=== PATIENT | male | born 1990 | race Caucasian/White ===

== ENCOUNTER 2016-08-30 10:50 | Inpatient (IN) | payer OTHER, MEDICAID ==
[2016-08-30] MEDS ORDERED: Sodium Chloride 0.9% 10 ML Syringe FLUSH PRN (11:11)
--- NOTE | 2016-08-30 11:15 | EDM.PDOC ---
ED HISTORY OF PRESENT ILLNESS - General Chief Complaint: Respiratory Problem Stated Complaint: CONGESTION AND SOB Time Seen by Provider: 08/30/16 11:03 Source of Information: Reports: Patient, Other (Aid is present.) History Limitations: Reports: No limitations - History of Present Illness INITIAL COMMENTS - FREE TEXT/NARRATIVE: Patient is a 26-year-old male with Down's syndrome who presents to the ED complaining of increasing shortness of breath and weight gain. 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 Staff states the patient has been complaining of some congestion, cough, sore throat and low-grade fever for the past few days, and worsening shortness of breath. Upon awaking this morning patient was notable to have low O2 sats of 89 % and thus was evaluated by PCP today. Chest x-ray was obtained at that time with concerns for pneumonia/increased pulmonary vascular congestion. He was sent to the ED to further evaluate his heart. He does have a history of heart failure. Staff notes patient had a approximately 18 pound weight gain over the past 2 weeks. Of note these are to different scales utilized. They have noticed patient to be more short of breath on the days that he does not receive his diuretic. Patient is nonverbal but is able to point to the areas when questioned. He nods yes and no for answers. Again patient has a history of Down syndrome, Tetralogy of fallot, heart valve replacement, pacemaker, asthma, pneumonia, and oxygen dependence. Patient requires oxygen 4 L at night and 2 L during the day. - Related Data Allergies/ADRs: Allergies Allergy/AdvReac Type Severity Reaction Status Date / Time amoxicillin [Amoxicillin] Allergy Rash Verified 08/30/16 15:23 Home Meds: Home Meds Aspirin [Artemio Chewable] 81 mg PO DAILY 12/18/13 [History] Warfarin Sodium [Coumadin] 6 mg PO MOTUWETHSA 12/18/13 [History] Sulfamethoxazole/Trimethoprim [Sulfamethoxazole-Tmp Ds Tablet] 1 tab PO BID [History] Acetaminophen 650 mg PO Q4H PRN 08/30/16 [History] D-Methorphan Hb/P-Ephed HCl/Cp [Pedia Relief Cough-Cold] 4 tsp PO Q4H PRN [History] Omeprazole 20 mg PO DAILY 08/30/16 [History] Warfarin Sodium [Coumadin] 4 mg PO FRSA 08/30/16 [History] acetaZOLAMIDE [Acetazolamide] 250 mg PO Q48H 08/30/16 [History] Past Medical History Cardiovascular History: Reports: Afib, Heart valve replacement, Pacemaker Psychiatric History: Reports: Other (see below) Other Psychiatric History: Down's syndrome - Past Surgical History Head Surgeries/Procedures: Reports: None Social & Family History - Tobacco Use Smoking Status *Q: Never Smoker Second Hand Smoke Exposure: No - Caffeine Use Caffeine Use: Reports: None - Alcohol Use Days Per Week of Alcohol Use: 0 - Recreational Drug Use Recreational Drug Use: No ED ROS GENERAL - Review of Systems Review Of Systems: See Below Constitutional: Denies: fever, chills, malaise, weakness, fatigue, decreased appetite HEENT: Reports: Rhinitis, Sinus problem, Throat pain. Denies: Ear pain, Throat swelling Respiratory: Reports: Shortness of Breath, Wheezing, Cough, Sputum. Denies: Hemoptysis Cardiovascular: Reports: Dyspnea on exertion. Denies: Chest pain, Orthopnea, PND GI/Abdominal: Denies: Abdominal pain, Constipation, Diarrhea, Nausea, Vomiting : Reports: no symptoms Neurological: Reports: No Symptoms ED EXAM, GENERAL - Physical Exam Exam: See Below Exam Limited By: No limitations General Appearance: alert, WD/WN, no apparent distress, other (On supplemental oxygen via nasal cannula at 4 L per minute O2 sats 90%.) Eye Exam: bilateral eye: EOMI, PERRL Ears: normal external exam, normal canal, hearing grossly normal, normal TMs Nose: normal inspection Throat/Mouth: Normal inspection, Normal oropharynx, No airway compromise. No: Normal voice (Nonverbal) Neck: normal inspection, supple, non-tender, full range of motion, other (No JVD ). No: carotid bruit, lymphadenopathy (L), lymphadenopathy (R) Respiratory/Chest: no respiratory distress, lungs clear, no accessory muscle use , wheezing (Intermittent wheezing.), other (Poor inspiratory intake). No: crackles, rales, rhonchi, stridor, pleural rub Cardiovascular: normal peripheral pulses, regular rate, rhythm, systolic murmur Peripheral Pulses: 2+: radial (R) GI/Abdominal: normal bowel sounds, soft, non tender, no organomegaly, no distention Back Exam: normal inspection Extremities: normal inspection, non-tender, no pedal edema, normal capillary refill Neurological: alert, oriented, normal cognition, no motor/sensory deficits. No : CN II-XII intact (As tested intact) Psychiatric: normal affect, normal mood Skin Exam: Warm, Dry, Intact, Normal color, No rash Course - Vital Signs Last Recorded V/S: Last Vital Signs Temp 97.3 F 08/30/16 20:32 Pulse 82 08/30/16 20:32 Resp 24 H 08/30/16 20:32 BP 116/59 L 08/30/16 20:32 Pulse Ox 92 L 08/30/16 20:32 - Orders/Labs/Meds Orders: Active Orders 24 hr Category Date Time Status CULTURE BLOOD [] Stat Lab 08/30/16 13:49 Received CULTURE BLOOD [] Stat Lab 08/30/16 14:00 Received CULTURE STREP A CONFIRMATION [] Stat Lab 08/30/16 11:52 Results STREP SCRN A RAPID W CULT CONF [] Stat Lab 08/30/16 11:52 Results Sodium Chloride 0.9% [Normal Saline] 1,000 ml Med 08/30/16 13:45 Active IV ASDIRECTED Sodium Chloride 0.9% [Saline Flush] Med 08/30/16 11:11 Active 10 ml FLUSH ASDIRECTED PRN Blood Culture x2 Reflex Set [OM.PC] Stat Oth 08/30/16 13:27 Ordered Peripheral IV Insertion Adult [OM.PC] Stat Oth 08/30/16 11:12 Ordered Medication Orders Acetaminophen (Tylenol) 650 mg PO Q4H PRN PRN Reason: Pain (Mild 1-3)/fever Hydrocodone Bitart/Acetaminophen (Basco 325-5 Mg) 1 tab PO Q4H PRN PRN Reason: Pain (moderate 4-6) Last Admin: 08/30/16 21:16 Dose: 1 tab Acetazolamide (Diamox) 250 mg PO Q48H [facility] Albuterol/Ipratropium (Duoneb 3.0-0.5 Mg/3 Ml) 3 ml NEB Q4H PRN PRN Reason: Shortness Of Breath/wheezing Aspirin (Aspirin) 81 mg PO DAILY [facility] Bisacodyl (Dulcolax) 5 mg PO DAILY PRN PRN Reason: Constipation Docusate Sodium (Colace) 100 mg PO BID PRN PRN Reason: Constipation Guaifenesin (Mucinex) 1,200 mg PO BID [facility] Last Admin: 08/30/16 21:16 Dose: 1,200 mg Hydralazine HCl (Apresoline) 20 mg IVPUSH Q4H PRN PRN Reason: Hypertension Hydromorphone HCl (Dilaudid) 0.25 mg IVPUSH Q2H PRN PRN Reason: Pain (severe 7-10) Sodium Chloride (Normal Saline) 1,000 mls @ 75 mls/hr IV ASDIRECTED [facility] Last Admin: 08/30/16 14:47 Dose: 75 mls/hr Azithromycin 500 mg/ Sodium (Chloride) 250 mls @ 250 mls/hr IV Q24H [facility] Ceftriaxone Sodium 1 gm/ (Sodium Chloride) 100 mls @ 200 mls/hr IV Q24H [facility] Magnesium Sulfate (Pharmacy To Dose - Magnesium Replacement) 1 dose .XX ASDIRECTED [facility] Metoprolol Tartrate (Lopressor) 5 mg IVPUSH Q4H PRN PRN Reason: Tachycardia Ondansetron HCl (Zofran) 4 mg IV Q6H PRN PRN Reason: Nausea/Vomiting Pantoprazole Sodium (Protonix) 40 mg PO DAILY [facility] D-Methorphan Hb/P- Ephed Hcl/Cp [Pedia Relief Cough-Cold] 0 each PO Q4H PRN PRN Reason: cold symptoms Potassium Chloride (Pharmacy To Dose - Potassium Replacement) 1 dose .XX ASDIRECTED [facility] Saccharomyces Boulardii (Florastor) 250 mg PO BID [facility] Last Admin: 08/30/16 21:16 Dose: 250 mg Senna/Docusate Sodium (Senna Plus) 1 tab PO BID PRN PRN Reason: Constipation Sodium Chloride (Saline Flush) 10 ml FLUSH ASDIRECTED PRN PRN Reason: Keep Vein Open Last Admin: 08/30/16 13:10 Dose: 10 ml Temazepam (Restoril) 15 mg PO BEDTIME PRN PRN Reason: Sleep Warfarin Sodium (Coumadin) 4 mg PO FRSA [facility] Warfarin Sodium (Coumadin) 6 mg PO MOTUWETHSA [facility] Last Admin: 08/30/16 17:05 Dose: Labs: Laboratory Tests 08/30/16 08/30/16 08/30/16 Range/Units 12:15 12:15 12:15 WBC 7.49 (4.23-9.07) K/mm3 RBC 4.52 L (4.63-6.08) M/mm3 Hgb 14.3 (13.7-17.5) gm/L Hct 44.0 (40.1-51.0) % MCV 97.3 H (79.0-92.2) fl MCH 31.6 (25.7-32.2) pg MCHC 32.5 (32.2-35.5) g/dl RDW Std Deviation 51.4 H (35.1-43.9) fL Plt Count 196 (163-337) K/mm3 MPV 9.7 (9.4-12.3) fl Neut % (Auto) 81.6 H (34.0-67.9) % Lymph % (Auto) 11.3 L (21.8-53.1) % [place] % (Auto) 5.9 (5.3-12.2) % Eos % (Auto) 0.5 L (0.8-7.0) Baso % (Auto) 0.4 (0.1-1.2) % Neut # (Auto) 6.11 H (1.78-5.38) K/mm3 Lymph # (Auto) 0.85 L (1.32-3.57) K/mm3 [place] # (Auto) 0.44 (0.30-0.82) K/mm3 Eos # (Auto) 0.04 (0.04-0.54) K/mm3 Baso # (Auto) 0.03 (0.01-0.08) K/mm3 PT 43.5 H (8.0-13.0) SECONDS INR 3.67 Sodium 136 (136-145) mEq/L Potassium 3.7 (3.5-5.1) mEq/L Chloride 102 (98-107) mEq/L Carbon Dioxide 28 (21-32) mEq/L Anion Gap 9.7 (5-15) BUN 10 (7-18) mg/dL Creatinine 1.2 (0.7-1.3) mg/dL Est Cr Clr Drug Dosing 78.80 mL/min Estimated GFR (MDRD) > 60 (>60) mL/min BUN/Creatinine Ratio 8.3 L (14-18) Glucose 128 H (74-106) mg/dL Calcium 8.5 (8.5-10.1) mg/dL Total Bilirubin 0.7 (0.2-1.0) mg/dL AST 24 (15-37) U/L ALT 33 (16-63) U/L Alkaline Phosphatase 77 (46-116) U/L Troponin I < 0.017 (0.00-0.056) ng/mL C-Reactive Protein 20.3 H* (<1.0) mg/dL B-Natriuretic Peptide (0-100) pg/mL Total Protein 7.2 (6.4-8.2) g/dl Albumin 3.5 (3.4-5.0) g/dl Globulin 3.7 gm/dL Albumin/Globulin Ratio 1.0 (1-2) Mycoplasma pneumon IgM (NEGATIVE) 08/30/16 08/30/16 Range/Units 12:15 12:15 WBC (4.23-9.07) K/mm3 RBC (4.63-6.08) M/mm3 Hgb (13.7-17.5) gm/L Hct (40.1-51.0) % MCV (79.0-92.2) fl MCH (25.7-32.2) pg MCHC (32.2-35.5) g/dl RDW Std Deviation (35.1-43.9) fL Plt Count (163-337) K/mm3 MPV (9.4-12.3) fl Neut % (Auto) (34.0-67.9) % Lymph % (Auto) (21.8-53.1) % [place] % (Auto) (5.3-12.2) % Eos % (Auto) (0.8-7.0) Baso % (Auto) (0.1-1.2) % Neut # (Auto) (1.78-5.38) K/mm3 Lymph # (Auto) (1.32-3.57) K/mm3 [place] # (Auto) (0.30-0.82) K/mm3 Eos # (Auto) (0.04-0.54) K/mm3 Baso # (Auto) (0.01-0.08) K/mm3 PT (8.0-13.0) SECONDS INR Sodium (136-145) mEq/L Potassium (3.5-5.1) mEq/L Chloride (98-107) mEq/L Carbon Dioxide (21-32) mEq/L Anion Gap (5-15) BUN (7-18) mg/dL Creatinine (0.7-1.3) mg/dL Est Cr Clr Drug Dosing mL/min Estimated GFR (MDRD) (>60) mL/min BUN/Creatinine Ratio (14-18) Glucose (74-106) mg/dL Calcium (8.5-10.1) mg/dL Total Bilirubin (0.2-1.0) mg/dL AST (15-37) U/L ALT (16-63) U/L Alkaline Phosphatase (46-116) U/L Troponin I (0.00-0.056) ng/mL C-Reactive Protein (<1.0) mg/dL B-Natriuretic Peptide 124 H (0-100) pg/mL Total Protein (6.4-8.2) g/dl Albumin (3.4-5.0) g/dl Globulin gm/dL Albumin/Globulin Ratio (1-2) Mycoplasma pneumon IgM Negative (NEGATIVE) Meds: Medications Generic Name Dose Route Start Last Admin Trade Name Freq PRN Reason Stop Dose Admin Acetaminophen 650 mg 08/30/16 16:45 Tylenol PO Q4H PRN Pain (Mild 1-3)/fever Hydrocodone Bitart/Acetaminophen 1 tab 08/30/16 16:45 08/30/16 21:16 Basco 325-5 Mg PO 1 tab Q4H PRN Administration Pain (moderate 4-6) Acetazolamide 250 mg 08/31/16 08:00 Diamox PO Q48H [facility] Albuterol/Ipratropium 3 ml 08/30/16 16:45 Duoneb 3.0-0.5 Mg/3 Ml NEB Q4H PRN Shortness Of Breath/wheezing Aspirin 81 mg 08/31/16 09:00 Aspirin PO DAILY [facility] Bisacodyl 5 mg 08/30/16 16:45 Dulcolax PO DAILY PRN Constipation Docusate Sodium 100 mg 08/30/16 16:45 Colace PO BID PRN Constipation Guaifenesin 1,200 mg 08/30/16 21:00 08/30/16 21:16 Mucinex PO 1,200 mg BID [facility] Administration Hydralazine HCl 20 mg 08/30/16 16:52 Apresoline IVPUSH Q4H PRN Hypertension Hydromorphone HCl 0.25 mg 08/30/16 16:45 Dilaudid IVPUSH Q2H PRN Pain (severe 7-10) Sodium Chloride 1,000 mls @ 75 mls/hr 08/30/16 13:45 08/30/16 14:47 Normal Saline IV 75 mls/hr ASDIRECTED [facility] Administration Azithromycin 500 mg/ Sodium 250 mls @ 250 mls/hr 08/31/16 14:30 Chloride IV Q24H [facility] Ceftriaxone Sodium 1 gm/ 100 mls @ 200 mls/hr 08/31/16 14:00 Sodium Chloride IV Q24H [facility] Magnesium Sulfate 1 dose 08/30/16 17:00 Pharmacy To Dose - Magnesium Replacement .XX ASDIRECTED [facility] Metoprolol Tartrate 5 mg 08/30/16 16:52 Lopressor IVPUSH Q4H PRN Tachycardia Ondansetron HCl 4 mg 08/30/16 16:45 Zofran IV Q6H PRN Nausea/Vomiting Pantoprazole Sodium 40 mg 08/31/16 09:00 Protonix PO DAILY [facility] D-Methorphan Hb/P- 0 each 08/30/16 16:54 Ephed Hcl/Cp [Pedia PO Relief Cough-Cold] Q4H PRN cold symptoms Potassium Chloride 1 dose 08/30/16 17:00 Pharmacy To Dose - Potassium Replacement .XX ASDIRECTED [facility] Saccharomyces Boulardii 250 mg 08/30/16 21:00 08/30/16 21:16 Florastor PO 250 mg BID [facility] Administration Senna/Docusate Sodium 1 tab 08/30/16 16:45 Senna Plus PO BID PRN Constipation Sodium Chloride 10 ml 08/30/16 11:11 08/30/16 13:10 Saline Flush FLUSH 10 ml ASDIRECTED PRN Administration Keep Vein Open Temazepam 15 mg 08/30/16 16:45 Restoril PO BEDTIME PRN Sleep Warfarin Sodium 4 mg 09/01/16 18:00 Coumadin PO FRSA [facility] Warfarin Sodium 6 mg 08/30/16 18:00 08/30/16 17:05 Coumadin PO Not Given MOTUWETHSA [facility] Discontinued Medications Generic Name Dose Route Start Last Admin Trade Name Freq PRN Reason Stop Dose Admin Acetaminophen 650 mg 08/30/16 16:54 Tylenol PO Q4H PRN Pain/Fever Albuterol 2.5 mg 08/30/16 13:32 08/30/16 13:51 Proventil Neb Soln NEB 08/30/16 13:33 2.5 mg ONETIME ONE Administration Furosemide 60 mg 08/30/16 11:59 08/30/16 12:57 Lasix IVPUSH 08/30/16 12:00 60 mg NOW ONE Administration Azithromycin 500 mg/ Sodium 250 mls @ 250 mls/hr 08/30/16 13:35 08/30/16 14: 46 Chloride IV 08/30/16 14:34 250 mls/hr ONETIME ONE Administration Ceftriaxone Sodium 2 gm/ 100 mls @ 200 mls/hr 08/30/16 13:35 08/30/16 14:01 Sodium Chloride IV 08/30/16 14:04 200 mls/hr ONETIME ONE Administration - Re-Assessments/Exams Free Text/Narrative Re-Assessment/Exam: Normally on Home O2 4lpm at night and 2lpm during the day. O2 sats normally 92% . He presents today with o2 87 to 89% on 4lpm. CXR reviewed by Dr. Moulton and myself. Pacemaker present with prosthetic aortic and tricupsid valve. Increased pulmonary congestion noted. Dr. Moulton suggests with recent history of weight gain, worsening sob, will order 60mg lasix IV. 08/30/16 12:01 EKG revealed ventricular paced at a rate 84. 08/30/16 12:34 Labs are delayed secondary to electrical work. 08/30/16 13:30 Labs reviewed: White blood count 7.49, hemoglobin 14.3, platelets 196, for percentage 81.6, neutrophil number is 6.11, INR is 3.67, sodium 136, potassium 3.7, creatinine 1.2, glucose 128, troponin is negative, CRP is elevated at 20.3, BNP 124. INR goal is 2.0 to 3.5. BNP indicated he is not in congestive heart failure as expected. CXR revealed bilateral infiltration noted this may be related to influenza or mycoplasma. Influenza screen was negative. Ordered a mycoplasma. Patient does have a history of pneumonia. Will obtain blood cultures x2 prior to administration of IV antibiotics. Influenza screen and strep throat were both negative. Order Rocephin and azithromycin for CAP. 08/30/16 13:34 Ordered NS 75mls/hr. MCG was being completed by shaker operator. Awaiting status. Mycoplasma is negative. 08/30/16 15:06 Dr. Teo man hospitalist has accepted the patient. Will admit to [facility] with telemetry. Dr. Moulton has placed admission orders. Ordered UA w/micro. Departure - Departure Time of Disposition: 15:09 Disposition: Admitted As Inpatient 67 Clinical Impression: Hypoxia, Community acquired pneumonia, Complete trisomy 21 syndrome, Heart valve disorder, Valvular heart disease - My Orders Last 24 Hours: My Active Orders 08/30/16 11:11 Sodium Chloride 0.9% [Saline Flush] 10 ml FLUSH ASDIRECTED PRN 08/30/16 11:12 Peripheral IV Insertion Adult [OM.PC] Stat 08/30/16 11:52 CULTURE STREP A CONFIRMATION [RM] Stat STREP SCRN A RAPID W CULT CONF [RM] Stat 08/30/16 13:27 Blood Culture x2 Reflex Set [OM.PC] Stat 08/30/16 13:45 Sodium Chloride 0.9% [Normal Saline] 1,000 ml IV ASDIRECTED 08/30/16 13:49 CULTURE BLOOD [BC] Stat 08/30/16 14:00 CULTURE BLOOD [BC] Stat - Assessment/Plan Last 24 Hours: My Active Orders 08/30/16 11:11 Sodium Chloride 0.9% [Saline Flush] 10 ml FLUSH ASDIRECTED PRN 08/30/16 11:12 Peripheral IV Insertion Adult [OM.PC] Stat 08/30/16 11:52 CULTURE STREP A CONFIRMATION [RM] Stat STREP SCRN A RAPID W CULT CONF [RM] Stat 08/30/16 13:27 Blood Culture x2 Reflex Set [OM.PC] Stat 08/30/16 13:45 Sodium Chloride 0.9% [Normal Saline] 1,000 ml IV ASDIRECTED 08/30/16 13:49 CULTURE BLOOD [BC] Stat 08/30/16 14:00 CULTURE BLOOD [BC] Stat
[2016-08-30] MEDS ORDERED: Furosemide 40 MG/4 ML VIAL IVPUSH ONE (11:59)
--- NOTE | 2016-08-30 13:03 | PCM.SN ---
- Free Text/Narrative Note: 08/30/16 [id number] IV started 20 guage left wrist area. [email or web address]
[2016-08-30] MEDS ORDERED: Albuterol 0.083% 2.5 MG/3 ML Neb Soln NEB ONE (13:32)
[2016-08-30] MEDS ORDERED: Azithromycin 500 MG in Sodium Chloride 0.9% 250 ML IV ONE (13:35)
[2016-08-30] MEDS ORDERED: cefTRIAXone 2 GM in Sodium Chloride 0.9% 100 ML IV ONE (13:35)
[2016-08-30] MEDS: Sodium Chloride 0.9% 1,000 ML IV SCH (14:47)
--- NOTE | 2016-08-30 15:54 | PCM.HP ---
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 He was initially seen at his PCP office and was found to have bilateral pneumonia. Patient also carries a hx/o heart failure and [facility] noticed he has gained 18 lbs in the past 10 days. Patient is nonverbal and he is unable to provide pertinent info. HPI was obtained from secondary sources to include his mother who was present at bedside. His initial lab work in ED shows a fairly unremarkable CBC. INR is 3.67. His chemistry is significant for BS of 128, BNP of 124 and CRP of 20.3. His UA is negative for UTI. He is Mycoplasma negative. Initial CXR not available for review. He is DNR/DNI per mom. Throat Pain Score (Numeric/FACES): 2 - Related Data Allergies/Adverse Reactions: Allergies Allergy/AdvReac Type Severity Reaction Status Date / Time amoxicillin [Amoxicillin] Allergy Rash Verified 08/30/16 15:23 Home Medications: Home Meds Aspirin [Artemio Chewable] 81 mg PO DAILY 12/18/13 [History] Warfarin Sodium [Coumadin] 6 mg PO MOTUWETHSA 12/18/13 [History] Sulfamethoxazole/Trimethoprim [Sulfamethoxazole-Tmp Ds Tablet] 1 tab PO BID [History] Acetaminophen 650 mg PO Q4H PRN 08/30/16 [History] D-Methorphan Hb/P-Ephed HCl/Cp [Pedia Relief Cough-Cold] 4 tsp PO Q4H PRN [History] Omeprazole 20 mg PO DAILY 08/30/16 [History] Warfarin Sodium [Coumadin] 4 mg PO FRSA 08/30/16 [History] acetaZOLAMIDE [Acetazolamide] 250 mg PO Q48H 08/30/16 [History] Past Medical History HEENT History: Reports: Impaired vision Cardiovascular History: Reports: Afib, Heart valve replacement, Pacemaker Respiratory History: Reports: Pneumonia, recurrent, Sleep apnea Psychiatric History: Reports: Other (see below) Other Psychiatric History: Down's syndrome Endocrine/Metabolic History: Reports: Obesity/BMI 30+ - Past Surgical History Head Surgeries/Procedures: Reports: None Social & Family History - Tobacco Use Smoking Status *Q: Never Smoker Second Hand Smoke Exposure: No - Caffeine Use Caffeine Use: Reports: Soda - Alcohol Use Days Per Week of Alcohol Use: 0 - Recreational Drug Use Recreational Drug Use: No H&P Review of Systems - Review of Systems: Review Of Systems: See Below General: Denies: fever, chills, malaise, weakness, fatigue, decreased appetite HEENT: Reports: rhinitis, sinus congestion, sore throat Pulmonary: Reports: Shortness of Breath, Wheezing, Cough, Sputum Cardiovascular: Reports: dyspnea on exertion Gastrointestinal: Denies: Abdominal pain, Constipation, Diarrhea, Nausea, Vomiting Genitourinary: Reports: no symptoms Musculoskeletal: Denies: joint pain, muscle pain Skin: Denies: cyanosis, rash, erythema Review of Systems Comment:: Patient is non verbal and unable to provide pertinent information. He will respond when you give him choices or options. Exam - Exam Exam: See Below - Vital Signs Vital Signs: Last Vital Signs Temp 37.1 C 08/30/16 15:15 Pulse 89 08/30/16 15:15 Resp 22 H 08/30/16 15:15 BP 107/79 08/30/16 15:15 Pulse Ox 92 L 08/30/16 15:15 Weight: 105.732 kg - Exam Quality Assessment: supplemental oxygen General: alert, cooperative, other (Obese). No: mild distress HEENT: Conjunctiva clear, Hearing intact, Mucosa moist & pink, Normal nasal septum, Rhinitis, Other (Allergic shiners), PERRLA. No: Nares patent Neck: supple, trachea midline, 2+ carotid pulse wo bruit, other (Short and thick ) Lungs: Normal respiratory effort, Decreased breath sounds, Other (Poor inspiratory and expiratory effort) Cardiovascular: regular rate, regular rhythm Abdomen: normal bowel sounds, soft, other (Obese). No: organomegaly (Male) Exam: Deferred Rectal (Males) Exam: Deferred Back Exam: normal inspection, decreased range of motion Extremities: normal inspection, normal pulses, edema. No: clubbing, cyanosis, calf tenderness Peripheral Pulses: 2+: posterior tibial (L), posterior tibial (R), dorsalis pedis (L), dorsalis pedis (R) Skin: warm, dry, intact, other (distal digits cyanosis and lower extremity are somewhat mottled) Skin Alteration Location (drawings not to scale): 1 - Mid-line scar 2 - Diagonal scar. Pacemaker Neuro Extensive - Motor, Sensory, Reflexes: normal gait Psychiatric: alert. No: normal affect Physical Exam Comments:: Patient has a baseline intellectual disability. He is nonverbal. - Patient Data Result Diagrams: 08/30/16 12:15 08/30/16 12:15 *Q Meaningful Use (ADM) - VTE *Q VTE Criteria *Q: - Stroke *Q Stroke Criteria *Q: - AMI *Q AMI Criteria *Q: Problem List Initiated/Reviewed/Updated: Yes Orders Last 24hrs: Active Orders 24 hr Category Date Time Status UA W/MICROSCOPIC [URIN] Stat Lab 08/30/16 15:08 Uncollected Medication Orders Sodium Chloride (Normal Saline) 1,000 mls @ 75 mls/hr IV ASDIRECTED [facility] Last Admin: 08/30/16 14:47 Dose: 75 mls/hr Sodium Chloride (Saline Flush) 10 ml FLUSH ASDIRECTED PRN PRN Reason: Keep Vein Open Last Admin: 08/30/16 13:10 Dose: 10 ml Assessment/Plan Comment:: Assessment/Plan: Acute: Community Acquired Pneumonia - Seen on PCP's office, concerns for pneumonia, he was sent to ED for further eval - CXR bilateral infiltrate (I as not able to view it) - IV Azithromycin and Rocephin - Supplemental O2, Bronchodilators, IS and FV q2 awake and Cough Decongestant - Mycoplasma negative - Legionella and Strep Ag test - CXR series Supratherapeutic INR - INR is 3.67 - Pharmacy to monitor Weight Gain of 18lbs - Dietary consult for weight management Chronic: Atrial Fibrillation, HR Controlled on Warfarin Heart Valve Replacement (2 Prosthetic Valves) S/p Pacemaker Placement Down Syndrome Hx/o Heart Failure Hx/o Tetralogy of Fallot 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
[2016-08-30] MEDS ORDERED: HYDROmorphone 0.5 MG/0.5 ML Syringe IVPUSH PRN (16:45)
[2016-08-30] MEDS ORDERED: Bisacodyl 5 MG Tab PO PRN (16:45)
[2016-08-30] MEDS ORDERED: Docusate Sodium 100 MG Cap PO PRN (16:45)
[2016-08-30] MEDS ORDERED: Ondansetron 4 MG/2 ML SDV IV PRN (16:45)
[2016-08-30] MEDS ORDERED: Acetaminophen 325 MG Tab PO PRN ×2 (16:45→16:54)
[2016-08-30] MEDS ORDERED: Temazepam 15 MG Cap PO PRN (16:45)
[2016-08-30] MEDS ORDERED: hydrALAZINE 20 MG/ML SDV IVPUSH PRN (16:52)
[2016-08-30] MEDS ORDERED: Metoprolol Tartrate 5 MG/5 ML SDV IVPUSH PRN (16:52)
[2016-08-30] MEDS ORDERED: D METHORPHAN HB PO PRN (16:54)
[2016-08-30] MEDS ORDERED: P EPHED HCL PO PRN (16:54)
[2016-08-30] MEDS ORDERED: [UNRECOGNIZED DRUG - OTHER] PO PRN (16:54)
[2016-08-30] MEDS ORDERED: Warfarin 3 MG Tab PO SCH (18:00)
[2016-08-30] MEDS: guaiFENesin 600 MG Tab.ER PO SCH (21:16)
[2016-08-30] MEDS: Saccharomyces Boulardii (Probiotic) 250 MG Cap PO SCH (21:16)
[2016-08-30] MEDS: Acetaminophen/HYDROcodone 325-5 MG Tab PO PRN (21:16)
[2016-08-31] MEDS: Sodium Chloride 0.9% 1,000 ML IV SCH (03:52)
[2016-08-31] MEDS: Albuterol/Ipratropium 3.0-0.5 MG/3 ML Neb Soln NEB PRN ×3 (06:07→21:41)
[2016-08-31] MEDS ORDERED: Magnesium Sulfate/Water 2 GM in Premix Bag 1 BAG IV ONE (07:45)
[2016-08-31] MEDS: Oxymetazoline 0.05% Nasal Spray 15 ML Bottle NAS SCH (08:12)
[2016-08-31] MEDS: guaiFENesin 600 MG Tab.ER PO SCH ×2 (08:13→20:04)
[2016-08-31] MEDS: Pantoprazole 40 MG Tab.CR PO SCH (08:13)
[2016-08-31] MEDS: Aspirin 81 MG Tab.Chew PO SCH (08:13)
[2016-08-31] MEDS: Saccharomyces Boulardii (Probiotic) 250 MG Cap PO SCH ×2 (08:13→20:06)
[2016-08-31] MEDS: acetaZOLAMIDE 250 MG Tab PO SCH (08:13)
[2016-08-31] MEDS: Loratadine 10 MG Tab PO SCH (08:13)
[2016-08-31] MEDS ORDERED: Furosemide 20 MG/2 ML VIAL IVPUSH ONE (10:36)
--- NOTE | 2016-08-31 10:42 | PCM.PN ---
- General Info Date of Service: 08/31/16 Admission Dx/Problem (Free Text): Admission Diagnosis/Problem Admission Diagnosis/Problem Pneumonia Sandip is seen this morning, resting comfortably in bed. He is responsive to me, smiles and nods his head yes or no, sits up when asked, follows commands appropriately. He nods his head no when asked if pain, nods his head yes if SOB and yes that he is feeling a little better. Labs are stable/improving today. VSS this morning, continues on 4L/NC this am. Functional Status: Reports: pain controlled, tolerating diet, ambulating, urinating. Denies: new symptoms - Review of Systems Systems Review Comment:: Difficult to obtain as patient will only shake his head yes or no, but no pain and does have SOB but better than yesterday. - Patient Data Vitals - most recent: Last Vital Signs Temp 97.0 F 08/31/16 03:38 Pulse 72 08/31/16 03:38 Resp 23 H 08/31/16 03:38 BP 125/55 L 08/31/16 03:38 Pulse Ox 94 L 08/31/16 09:08 Weight - most recent: 233 lb 6.4 oz I&O - last 24 hours: Intake & Output 08/30/16 08/31/16 08/31/16 22:59 06:59 14:59 Intake Total 420 1351 Output Total 850 550 Balance -430 801 Lab Results last 24 hrs: Laboratory Results - last 24 hr 08/30/16 08/30/16 08/31/16 Range/Units 17:03 18:40 06:00 WBC 4.87 (4.23-9.07) K/mm3 RBC 4.33 L (4.63-6.08) M/mm3 Hgb 13.6 L (13.7-17.5) gm/L Hct 42.2 (40.1-51.0) % MCV 97.5 H (79.0-92.2) fl MCH 31.4 (25.7-32.2) pg MCHC 32.2 (32.2-35.5) g/dl RDW Std Deviation 52.0 H (35.1-43.9) fL Plt Count 191 (163-337) K/mm3 MPV 9.5 (9.4-12.3) fl Neut % (Auto) 63.5 (34.0-67.9) % Lymph % (Auto) 18.5 L (21.8-53.1) % [place] % (Auto) 12.3 H (5.3-12.2) % Eos % (Auto) 4.3 (0.8-7.0) Baso % (Auto) 0.6 (0.1-1.2) % Neut # (Auto) 3.09 (1.78-5.38) K/mm3 Lymph # (Auto) 0.90 L (1.32-3.57) K/mm3 [place] # (Auto) 0.60 (0.30-0.82) K/mm3 Eos # (Auto) 0.21 (0.04-0.54) K/mm3 Baso # (Auto) 0.03 (0.01-0.08) K/mm3 PT (8.0-13.0) SECONDS INR Sodium (136-145) mEq/L Potassium (3.5-5.1) mEq/L Chloride (98-107) mEq/L Carbon Dioxide (21-32) mEq/L Anion Gap (5-15) BUN (7-18) mg/dL Creatinine (0.7-1.3) mg/dL Est Cr Clr Drug Dosing mL/min Estimated GFR (MDRD) (>60) mL/min BUN/Creatinine Ratio (14-18) Glucose (74-106) mg/dL Calcium (8.5-10.1) mg/dL Magnesium (1.8-2.4) mg/dl C-Reactive Protein (<1.0) mg/dL Urine Color Yellow (Yellow) Urine Appearance Clear (Clear) Urine pH 5.5 (5.0-8.0) Ur Specific [place] 1.025 (1.005-1.030) Urine Protein Negative (Negative) Urine Glucose (UA) Negative (Negative) Urine Ketones Negative (Negative) Urine Occult Blood Negative (Negative) Urine Nitrite Negative (Negative) Urine Bilirubin Negative (Negative) Urine Urobilinogen 0.2 (0.2-1.0) Ur Leukocyte Esterase Negative (Negative) Urine RBC 0-5 (0-5) /hpf Urine WBC 0-5 (0-5) /hpf Ur Epithelial Cells Not Reportable Ur Squamous Epith Cells 5-10 H (0-5) /hpf Urine Bacteria Not seen (FEW) /hpf Urine Mucus Not seen (FEW) /hpf MRSA (PCR) Negative 08/31/16 08/31/16 Range/Units 06:00 06:00 WBC (4.23-9.07) K/mm3 RBC (4.63-6.08) M/mm3 Hgb (13.7-17.5) gm/L Hct (40.1-51.0) % MCV (79.0-92.2) fl MCH (25.7-32.2) pg MCHC (32.2-35.5) g/dl RDW Std Deviation (35.1-43.9) fL Plt Count (163-337) K/mm3 MPV (9.4-12.3) fl Neut % (Auto) (34.0-67.9) % Lymph % (Auto) (21.8-53.1) % [place] % (Auto) (5.3-12.2) % Eos % (Auto) (0.8-7.0) Baso % (Auto) (0.1-1.2) % Neut # (Auto) (1.78-5.38) K/mm3 Lymph # (Auto) (1.32-3.57) K/mm3 [place] # (Auto) (0.30-0.82) K/mm3 Eos # (Auto) (0.04-0.54) K/mm3 Baso # (Auto) (0.01-0.08) K/mm3 PT 46.1 H (8.0-13.0) SECONDS INR 3.88 Sodium 141 (136-145) mEq/L Potassium 3.6 (3.5-5.1) mEq/L Chloride 105 (98-107) mEq/L Carbon Dioxide 30 (21-32) mEq/L Anion Gap 9.6 (5-15) BUN 10 (7-18) mg/dL Creatinine 1.1 (0.7-1.3) mg/dL Est Cr Clr Drug Dosing 79.28 mL/min Estimated GFR (MDRD) > 60 (>60) mL/min BUN/Creatinine Ratio 9.1 L (14-18) Glucose 93 (74-106) mg/dL Calcium 8.2 L (8.5-10.1) mg/dL Magnesium 1.6 L (1.8-2.4) mg/dl C-Reactive Protein 17.1 H* (<1.0) mg/dL Urine Color (Yellow) Urine Appearance (Clear) Urine pH (5.0-8.0) Ur Specific [place] (1.005-1.030) Urine Protein (Negative) Urine Glucose (UA) (Negative) Urine Ketones (Negative) Urine Occult Blood (Negative) Urine Nitrite (Negative) Urine Bilirubin (Negative) Urine Urobilinogen (0.2-1.0) Ur Leukocyte Esterase (Negative) Urine RBC (0-5) /hpf Urine WBC (0-5) /hpf Ur Epithelial Cells Ur Squamous Epith Cells (0-5) /hpf Urine Bacteria (FEW) /hpf Urine Mucus (FEW) /hpf MRSA (PCR) Med Orders - Current: Current Medications Acetaminophen (Tylenol) 650 mg PO Q4H PRN PRN Reason: Pain (Mild 1-3)/fever Hydrocodone Bitart/Acetaminophen ([place] 325-5 Mg) 1 tab PO Q4H PRN PRN Reason: Pain (moderate 4-6) Last Admin: 08/30/16 21:16 Dose: 1 tab Acetazolamide (Diamox) 250 mg PO Q48H [facility] Last Admin: 08/31/16 08:13 Dose: 250 mg Albuterol/Ipratropium (Duoneb 3.0-0.5 Mg/3 Ml) 3 ml NEB Q4H PRN PRN Reason: Shortness Of Breath/wheezing Last Admin: 08/31/16 06:07 Dose: 3 ml Aspirin (Aspirin) 81 mg PO DAILY [facility] Last Admin: 08/31/16 08:13 Dose: 81 mg Bisacodyl (Dulcolax) 5 mg PO DAILY PRN PRN Reason: Constipation Docusate Sodium (Colace) 100 mg PO BID PRN PRN Reason: Constipation Furosemide (Lasix) 20 mg IVPUSH NOW ONE Stop: 08/31/16 10:37 Guaifenesin (Mucinex) 1,200 mg PO BID [facility] Last Admin: 08/31/16 08:13 Dose: 1,200 mg Hydralazine HCl (Apresoline) 20 mg IVPUSH Q4H PRN PRN Reason: Hypertension Hydromorphone HCl (Dilaudid) 0.25 mg IVPUSH Q2H PRN PRN Reason: Pain (severe 7-10) Azithromycin 500 mg/ Sodium (Chloride) 250 mls @ 250 mls/hr IV Q24H [facility] Ceftriaxone Sodium 1 gm/ (Sodium Chloride) 100 mls @ 200 mls/hr IV Q24H [facility] Loratadine (Claritin) 10 mg PO DAILY [facility] Last Admin: 08/31/16 08:13 Dose: 10 mg Magnesium Sulfate (Pharmacy To Dose - Magnesium Replacement) 1 dose .XX ASDIRECTED [facility] Metoprolol Tartrate (Lopressor) 5 mg IVPUSH Q4H PRN PRN Reason: Tachycardia Ondansetron HCl (Zofran) 4 mg IV Q6H PRN PRN Reason: Nausea/Vomiting Oxymetazoline HCl (Afrin Original 0.05% Nasal [place]) 15 ml JACI DAILY [facility] Last Admin: 08/31/16 08:12 Dose: 1 spray Pantoprazole Sodium (Protonix) 40 mg PO DAILY [facility] Last Admin: 08/31/16 08:13 Dose: 40 mg D-Methorphan Hb/P- Ephed Hcl/Cp [Pedia Relief Cough-Cold] 0 each PO Q4H PRN PRN Reason: cold symptoms Potassium Chloride (Pharmacy To Dose - Potassium Replacement) 1 dose .XX ASDIRECTED [facility] Saccharomyces Boulardii (Florastor) 250 mg PO BID [facility] Last Admin: 08/31/16 08:13 Dose: 250 mg Senna/Docusate Sodium (Senna Plus) 1 tab PO BID PRN PRN Reason: Constipation Sodium Chloride (Saline Flush) 10 ml FLUSH ASDIRECTED PRN PRN Reason: Keep Vein Open Last Admin: 08/30/16 13:10 Dose: 10 ml Temazepam (Restoril) 15 mg PO BEDTIME PRN PRN Reason: Sleep Trimethoprim/Sulfamethoxazole (Septra Ds) 1 tab PO BID [facility] Warfarin Sodium (Pharmacy To Dose - Warfarin) 1 dose .XX ASDIRECTED [facility] Warfarin Sodium (Coumadin) 4 mg PO ONETIME ONE Stop: 08/31/16 18:01 Discontinued Medications Acetaminophen (Tylenol) 650 mg PO Q4H PRN PRN Reason: Pain/Fever Albuterol (Proventil Neb Soln) 2.5 mg NEB ONETIME ONE Stop: 08/30/16 13:33 Last Admin: 08/30/16 13:51 Dose: 2.5 mg Furosemide (Lasix) 60 mg IVPUSH NOW ONE Stop: 08/30/16 12:00 Last Admin: 08/30/16 12:57 Dose: 60 mg Sodium Chloride (Normal Saline) 1,000 mls @ 75 mls/hr IV ASDIRECTED [facility] Last Admin: 08/31/16 03:52 Dose: 75 mls/hr Azithromycin 500 mg/ Sodium (Chloride) 250 mls @ 250 mls/hr IV ONETIME ONE Stop: 08/30/16 14:34 Last Admin: 08/30/16 14:46 Dose: 250 mls/hr Ceftriaxone Sodium 2 gm/ (Sodium Chloride) 100 mls @ 200 mls/hr IV ONETIME ONE Stop: 08/30/16 14:04 Last Admin: 08/30/16 14:01 Dose: 200 mls/hr Magnesium Sulfate 2 gm/ Premix 50 mls @ 25 mls/hr IV ONETIME ONE Stop: 08/31/16 09:44 Last Admin: 08/31/16 08:12 Dose: 25 mls/hr Warfarin Sodium (Coumadin) 4 mg PO FRSA [facility] Warfarin Sodium (Coumadin) 6 mg PO MOTUWETHSA [facility] Last Admin: 08/30/16 17:05 Dose: Not Given - Exam Quality Assessment: supplemental oxygen, DVT prophylaxis (SCD's bilat) General: alert, cooperative, no acute distress (pleasant, smiles and shakes/ holds my hand this morning) HEENT: Pupils equal, Pupils reactive, EOMI, Mucous membr. moist/pink Neck: supple Lungs: Decreased breath sounds, Crackles (bases bilat), Rhonchi, Wheezing (mid to upper lobes bilat) Cardiovascular: Regular Rate, Regular Rhythm, Other (distant heart tones) Abdomen: bowel sounds present, soft, no tenderness. No: rebound, guarding, distension (Male) Exam: Deferred Back Exam: normal inspection Extremities: no calf tenderness Peripheral Pulses: 1+: dorsalis pedis (L), dorsalis pedis (R) Skin: warm, dry Neurological: other (nonverbal but does shake his head yes or no appropriately this moring when asked questions. Developmental delay. ) Psy/Mental Status: alert (calm and pleasant this am.) - Problem List & Annotations (1) Community acquired pneumonia SNOMED Code(s): 103636546 Code(s): J18.9 - PNEUMONIA, UNSPECIFIED ORGANISM Status: Acute Priority: High Current Visit: Yes (2) Hypoxia SNOMED Code(s): 614165576, 972060551 Code(s): R09.02 - HYPOXEMIA Status: Resolved Priority: High Current Visit: Yes (3) Heart valve disorder SNOMED Code(s): 779034 Code(s): I38 - ENDOCARDITIS, VALVE UNSPECIFIED Status: Chronic Priority: High Current Visit: Yes Annotation/Comment:: On coumadin therapy; two metal valves; [facility] coumadin [facility] recommends INR between 3 and 4. (4) Valvular heart disease SNOMED Code(s): 519236 Code(s): I38 - ENDOCARDITIS, VALVE UNSPECIFIED Status: Acute Current Visit: Yes (5) Complete trisomy 21 syndrome SNOMED Code(s): 63852036 Code(s): Q90.9 - DOWN SYNDROME, UNSPECIFIED Status: Chronic Priority: Medium Current Visit: No - Problem List Review Problem List Initiated/Reviewed/Updated: Yes - My Orders Last 24 Hours: My Active Orders 08/31/16 10:00 Sulfamethoxazole/Trimethoprim [Septra DS] 1 tab PO BID 08/31/16 10:36 Furosemide [Lasix] 20 mg IVPUSH NOW ONE 08/31/16 18:00 Warfarin [Coumadin] 4 mg PO ONETIME ONE - Plan Plan:: Assessment/Plan: Acute: Community Acquired Pneumonia - Seen on PCP's office, concerns for pneumonia, he was sent to ED for further eval - CXR bilateral infiltrate (I as not able to view it) -- Repeat one view chest this am with LLL pna noted, rt sided haziness present as well. - IV Azithromycin and Rocephin - Supplemental O2, Bronchodilators, IS and FV q2 awake and Cough Decongestant - Mycoplasma negative - Legionella and Strep Ag test - also negative - CXR series Supratherapeutic INR - INR is 3.67--3.8 8 - Pharmacy to monitor -Per [facility] coumadin clinic, recommend INR at 3-4 with two metal valves. 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 Code status: DNR/DNI
--- NOTE | 2016-08-31 11:13 | CR ---
Chest: Portable view of the chest was obtained. Comparison: Previous chest x-ray of 05/18/16. Prosthetic heart valves are seen. Sternotomy wires are noted. Epicardial wires are seen. Heart is enlarged. Pulmonary vessels show mild chronic appearing congestion. Impression: 1. Findings as noted above. No significant change is seen from previous chest x-ray. Diagnostic code #2
[2016-08-31] MEDS: Sulfamethoxazole/Trimethoprim 800-160 MG Tab PO SCH ×2 (11:18→20:06)
[2016-08-31] MEDS: cefTRIAXone 1 GM in Sodium Chloride 0.9% 100 ML IV SCH (13:59)
[2016-08-31] MEDS: Azithromycin 500 MG in Sodium Chloride 0.9% 250 ML IV SCH ×2 (14:00→14:16)
[2016-08-31] MEDS ORDERED: Warfarin 4 MG Tab PO ONE (18:00)
[2016-08-31] MEDS: Acetaminophen/HYDROcodone 325-5 MG Tab PO PRN (20:05)
[2016-09-01] MEDS: Albuterol/Ipratropium 3.0-0.5 MG/3 ML Neb Soln NEB PRN (06:30)
--- NOTE | 2016-09-01 06:41 | PCM.PN ---
- General Info Date of Service: 09/01/16 Admission Dx/Problem (Free Text): Admission Diagnosis/Problem Admission Diagnosis/Problem Pneumonia Sandip is seen this morning, resting comfortably in bed. He is responsive to me, doing well. He is responsive with nods to his head of yes and no appropriately. SOB is improved, still coughing. Overall feels better today. Labs are stable/improving today. VSS this morning. Functional Status: Reports: pain controlled, tolerating diet, ambulating, urinating. Denies: new symptoms - Review of Systems General: Reports: No Symptoms. Denies: Fever HEENT: Reports: no symptoms Pulmonary: Reports: no symptoms. Denies: shortness of breath (improving), cough Cardiovascular: Reports: No Symptoms Gastrointestinal: Reports: No symptoms Genitourinary: Reports: no symptoms Musculoskeletal: Reports: no symptoms Skin: Reports: no symptoms Neurological: Reports: No Symptoms, Other (developemtnal delay- baseline) Psychiatric: Reports: no symptoms - Patient Data Vitals - most recent: Last Vital Signs Temp 98.2 F 09/01/16 04:18 Pulse 60 09/01/16 04:18 Resp 18 09/01/16 04:18 BP 107/57 L 09/01/16 04:18 Pulse Ox 95 09/01/16 04:18 Weight - most recent: 233 lb 4.8 oz I&O - last 24 hours: Intake & Output 08/31/16 08/31/16 09/01/16 14:59 22:59 06:59 Intake Total 360 1386 200 Output Total 1050 1325 Balance 360 336 -1125 Lab Results last 24 hrs: Laboratory Results - last 24 hr 08/31/16 08/31/16 Range/Units 06:00 06:00 PT 46.1 H (8.0-13.0) SECONDS INR 3.88 Sodium 141 (136-145) mEq/L Potassium 3.6 (3.5-5.1) mEq/L Chloride 105 (98-107) mEq/L Carbon Dioxide 30 (21-32) mEq/L Anion Gap 9.6 (5-15) BUN 10 (7-18) mg/dL Creatinine 1.1 (0.7-1.3) mg/dL Est Cr Clr Drug Dosing 79.28 mL/min Estimated GFR (MDRD) > 60 (>60) mL/min BUN/Creatinine Ratio 9.1 L (14-18) Glucose 93 (74-106) mg/dL Calcium 8.2 L (8.5-10.1) mg/dL Magnesium 1.6 L (1.8-2.4) mg/dl C-Reactive Protein 17.1 H* (<1.0) mg/dL Med Orders - Current: Current Medications Acetaminophen (Tylenol) 650 mg PO Q4H PRN PRN Reason: Pain (Mild 1-3)/fever Last Admin: 09/01/16 04:23 Dose: 650 mg Hydrocodone Bitart/Acetaminophen ([place] 325-5 Mg) 1 tab PO Q4H PRN PRN Reason: Pain (moderate 4-6) Last Admin: 08/31/16 20:05 Dose: 1 tab Acetazolamide (Diamox) 250 mg PO Q48H [facility] Last Admin: 08/31/16 08:13 Dose: 250 mg Albuterol/Ipratropium (Duoneb 3.0-0.5 Mg/3 Ml) 3 ml NEB Q4H PRN PRN Reason: Shortness Of Breath/wheezing Last Admin: 09/01/16 06:30 Dose: 3 ml Aspirin (Aspirin) 81 mg PO DAILY [facility] Last Admin: 08/31/16 08:13 Dose: 81 mg Bisacodyl (Dulcolax) 5 mg PO DAILY PRN PRN Reason: Constipation Docusate Sodium (Colace) 100 mg PO BID PRN PRN Reason: Constipation Guaifenesin (Mucinex) 1,200 mg PO BID [facility] Last Admin: 08/31/16 20:04 Dose: 1,200 mg Hydralazine HCl (Apresoline) 20 mg IVPUSH Q4H PRN PRN Reason: Hypertension Hydromorphone HCl (Dilaudid) 0.25 mg IVPUSH Q2H PRN PRN Reason: Pain (severe 7-10) Azithromycin 500 mg/ Sodium (Chloride) 250 mls @ 250 mls/hr IV Q24H [facility] Last Admin: 08/31/16 14:16 Dose: 250 mls/hr Ceftriaxone Sodium 1 gm/ (Sodium Chloride) 100 mls @ 200 mls/hr IV Q24H [facility] Last Admin: 08/31/16 13:59 Dose: 200 mls/hr Loratadine (Claritin) 10 mg PO DAILY [facility] Last Admin: 08/31/16 08:13 Dose: 10 mg Magnesium Sulfate (Pharmacy To Dose - Magnesium Replacement) 1 dose .XX ASDIRECTED [facility] Metoprolol Tartrate (Lopressor) 5 mg IVPUSH Q4H PRN PRN Reason: Tachycardia Ondansetron HCl (Zofran) 4 mg IV Q6H PRN PRN Reason: Nausea/Vomiting Oxymetazoline HCl (Afrin Original 0.05% Nasal [place]) 15 ml JACI DAILY [facility] Last Admin: 08/31/16 08:12 Dose: 1 spray Pantoprazole Sodium (Protonix) 40 mg PO DAILY [facility] Last Admin: 08/31/16 08:13 Dose: 40 mg D-Methorphan Hb/P- Ephed Hcl/Cp [Pedia Relief Cough-Cold] 0 each PO Q4H PRN PRN Reason: cold symptoms Potassium Chloride (Pharmacy To Dose - Potassium Replacement) 1 dose .XX ASDIRECTED [facility] Saccharomyces Boulardii (Florastor) 250 mg PO BID [facility] Last Admin: 08/31/16 20:06 Dose: 250 mg Senna/Docusate Sodium (Senna Plus) 1 tab PO BID PRN PRN Reason: Constipation Sodium Chloride (Saline Flush) 10 ml FLUSH ASDIRECTED PRN PRN Reason: Keep Vein Open Last Admin: 08/30/16 13:10 Dose: 10 ml Temazepam (Restoril) 15 mg PO BEDTIME PRN PRN Reason: Sleep Trimethoprim/Sulfamethoxazole (Septra Ds) 1 tab PO BID [facility] Last Admin: 08/31/16 20:06 Dose: 1 tab Warfarin Sodium (Pharmacy To Dose - Warfarin) 1 dose .XX ASDIRECTED [facility] Discontinued Medications Acetaminophen (Tylenol) 650 mg PO Q4H PRN PRN Reason: Pain/Fever Albuterol (Proventil Neb Soln) 2.5 mg NEB ONETIME ONE Stop: 08/30/16 13:33 Last Admin: 08/30/16 13:51 Dose: 2.5 mg Furosemide (Lasix) 60 mg IVPUSH NOW ONE Stop: 08/30/16 12:00 Last Admin: 08/30/16 12:57 Dose: 60 mg Furosemide (Lasix) 20 mg IVPUSH NOW ONE Stop: 08/31/16 10:37 Last Admin: 08/31/16 11:18 Dose: 20 mg Sodium Chloride (Normal Saline) 1,000 mls @ 75 mls/hr IV ASDIRECTED [facility] Last Admin: 08/31/16 03:52 Dose: 75 mls/hr Azithromycin 500 mg/ Sodium (Chloride) 250 mls @ 250 mls/hr IV ONETIME ONE Stop: 08/30/16 14:34 Last Admin: 08/30/16 14:46 Dose: 250 mls/hr Ceftriaxone Sodium 2 gm/ (Sodium Chloride) 100 mls @ 200 mls/hr IV ONETIME ONE Stop: 08/30/16 14:04 Last Admin: 08/30/16 14:01 Dose: 200 mls/hr Magnesium Sulfate 2 gm/ Premix 50 mls @ 25 mls/hr IV ONETIME ONE Stop: 08/31/16 09:44 Last Admin: 08/31/16 08:12 Dose: 25 mls/hr Warfarin Sodium (Coumadin) 4 mg PO FRSA [facility] Warfarin Sodium (Coumadin) 6 mg PO MOTUWETHSA [facility] Last Admin: 08/30/16 17:05 Dose: Not Given Warfarin Sodium (Coumadin) 4 mg PO ONETIME ONE Stop: 08/31/16 18:01 Last Admin: 08/31/16 17:35 Dose: 4 mg - Exam Quality Assessment: supplemental oxygen, DVT prophylaxis General: alert, cooperative, no acute distress HEENT: Pupils equal, Pupils reactive, EOMI, Mucous membr. moist/pink Neck: supple Lungs: Decreased breath sounds, Crackles (course to bases bilat), Rhonchi (exp throughout), Wheezing Cardiovascular: Regular Rate, Regular Rhythm Abdomen: bowel sounds present, soft, no tenderness, no distension (Male) Exam: Deferred Extremities: no edema, no calf tenderness Peripheral Pulses: 1+: dorsalis pedis (L), dorsalis pedis (R) Skin: warm, dry, intact Neurological: other (baseline developmental delay) Psy/Mental Status: alert, normal affect, normal mood - Problem List & Annotations (1) Community acquired pneumonia SNOMED Code(s): 100799344 Code(s): J18.9 - PNEUMONIA, UNSPECIFIED ORGANISM Status: Acute Priority: High Current Visit: Yes (2) Hypoxia SNOMED Code(s): 409205617, 166889117 Code(s): R09.02 - HYPOXEMIA Status: Resolved Priority: High Current Visit: Yes (3) Heart valve disorder SNOMED Code(s): 064049 Code(s): I38 - ENDOCARDITIS, VALVE UNSPECIFIED Status: Chronic Priority: High Current Visit: Yes Annotation/Comment:: On coumadin therapy; two metal valves; [facility] coumadin clinic recommends INR between 3 and 4. (4) Valvular heart disease SNOMED Code(s): 591948 Code(s): I38 - ENDOCARDITIS, VALVE UNSPECIFIED Status: Acute Current Visit: Yes (5) Complete trisomy 21 syndrome SNOMED Code(s): 29934295 Code(s): Q90.9 - DOWN SYNDROME, UNSPECIFIED Status: Chronic Priority: Medium Current Visit: No - Problem List Review Problem List Initiated/Reviewed/Updated: Yes - My Orders Last 24 Hours: My Active Orders 08/31/16 10:00 Sulfamethoxazole/Trimethoprim [Septra DS] 1 tab PO BID - Plan Plan:: Assessment/Plan: Acute: Community Acquired Pneumonia - Seen on PCP's office, concerns for pneumonia, he was sent to ED for further eval - CXR bilateral infiltrate (I as not able to view it) -- Repeat one view chest this am with LLL pna noted, rt sided haziness present as well. - IV Azithromycin and Rocephin - Supplemental O2, Bronchodilators, IS and FV q2 awake and Cough Decongestant - Mycoplasma negative - Legionella and Strep Ag test - also negative - CXR series- repeat tomorrow to follow Supratherapeutic INR - INR is 3.67--3.8 8---2.57 today - Pharmacy to monitor -Per [facility] coumadin clinic, recommend INR at 3-4 with two metal valves. 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 Code status: DNR/DNI
[2016-09-01] MEDS: Pantoprazole 40 MG Tab.CR PO SCH (08:50)
[2016-09-01] MEDS: guaiFENesin 600 MG Tab.ER PO SCH ×2 (08:50→21:07)
[2016-09-01] MEDS: Aspirin 81 MG Tab.Chew PO SCH (08:50)
[2016-09-01] MEDS: Loratadine 10 MG Tab PO SCH (08:51)
[2016-09-01] MEDS: Saccharomyces Boulardii (Probiotic) 250 MG Cap PO SCH ×2 (08:51→21:07)
[2016-09-01] MEDS: Oxymetazoline 0.05% Nasal Spray 15 ML Bottle NAS SCH (08:51)
[2016-09-01] MEDS: Sulfamethoxazole/Trimethoprim 800-160 MG Tab PO SCH ×2 (08:51→21:07)
[2016-09-01] MEDS: Potassium Chloride 20 MEQ Tab.ER PO SCH ×2 (08:51→11:31)
[2016-09-01] MEDS: cefTRIAXone 1 GM in Sodium Chloride 0.9% 100 ML IV SCH (14:10)
[2016-09-01] MEDS: Azithromycin 500 MG in Sodium Chloride 0.9% 250 ML IV SCH (14:54)
[2016-09-01] MEDS: Enoxaparin 120 MG/0.8 ML Syringe SUBCUT SCH ×2 (16:16→21:08)
[2016-09-01] MEDS ORDERED: Warfarin 4 MG Tab PO SCH (18:00)
[2016-09-01] MEDS ORDERED: Warfarin 3 MG Tab PO ONE (18:00)
[2016-09-01] MEDS: Acetaminophen/HYDROcodone 325-5 MG Tab PO PRN (21:07)
--- NOTE | 2016-09-02 07:35 | PCM.PN ---
- General Info Date of Service: 09/02/16 Admission Dx/Problem (Free Text): Admission Diagnosis/Problem Admission Diagnosis/Problem Pneumonia Subjective Update: Follow up Functional Status: Reports: pain controlled, tolerating diet, ambulating, urinating, new symptoms - Review of Systems General: Denies: Fever, Weakness, Fatigue, Malaise, Chills HEENT: Reports: no symptoms Pulmonary: Reports: shortness of breath Cardiovascular: Denies: Chest Pain Gastrointestinal: Denies: Abdominal pain, Nausea, Vomiting Genitourinary: Reports: no symptoms Musculoskeletal: Reports: no symptoms Skin: Denies: cyanosis, rash Neurological: Denies: Difficulty Walking, Weakness, Gait Disturbance Psychiatric: Denies: confusion, depression, anxiety, agitation, cravings Systems Review Comment:: No overnight or acute issues. He is alert and awake. He looks comfortable at bedside. He remains afebrile with mild leukocytosis. - Patient Data Vitals - most recent: Last Vital Signs Temp 36.7 C 09/02/16 05:59 Pulse 62 09/02/16 05:59 Resp 20 09/02/16 05:59 BP 128/58 L 09/02/16 05:59 Pulse Ox 94 L 09/02/16 05:59 Weight - most recent: 105.823 kg I&O - last 24 hours: Intake & Output 09/01/16 09/02/16 09/02/16 22:59 06:59 14:59 Intake Total 1350 400 Output Total 800 700 Balance 550 -300 Lab Results last 24 hrs: Laboratory Results - last 24 hr 09/01/16 09/01/16 09/02/16 Range/Units 06:33 06:33 05:40 WBC 4.06 L (4.23-9.07) K/mm3 RBC 4.17 L (4.63-6.08) M/mm3 Hgb 13.1 L (13.7-17.5) gm/L Hct 40.9 (40.1-51.0) % MCV 98.1 H (79.0-92.2) fl MCH 31.4 (25.7-32.2) pg MCHC 32.0 L (32.2-35.5) g/dl RDW Std Deviation 51.5 H (35.1-43.9) fL Plt Count 238 (163-337) K/mm3 MPV 9.8 (9.4-12.3) fl Neut % (Auto) 47.1 (34.0-67.9) % Lymph % (Auto) 34.2 (21.8-53.1) % [place] % (Auto) 8.4 (5.3-12.2) % Eos % (Auto) 7.6 H (0.8-7.0) Baso % (Auto) 1.7 H (0.1-1.2) % Neut # (Auto) 1.91 (1.78-5.38) K/mm3 Lymph # (Auto) 1.39 (1.32-3.57) K/mm3 [place] # (Auto) 0.34 (0.30-0.82) K/mm3 Eos # (Auto) 0.31 (0.04-0.54) K/mm3 Baso # (Auto) 0.07 (0.01-0.08) K/mm3 Manual Slide Review Not Reportable PT 29.7 H (8.0-13.0) SECONDS INR 2.57 Sodium 139 (136-145) mEq/L Potassium 3.4 L (3.5-5.1) mEq/L Chloride 103 (98-107) mEq/L Carbon Dioxide 29 (21-32) mEq/L Anion Gap 10.4 (5-15) BUN 15 (7-18) mg/dL Creatinine 1.1 (0.7-1.3) mg/dL Est Cr Clr Drug Dosing 79.28 mL/min Estimated GFR (MDRD) > 60 (>60) mL/min BUN/Creatinine Ratio 13.6 L (14-18) Glucose 93 (74-106) mg/dL Calcium 8.3 L (8.5-10.1) mg/dL Magnesium 1.8 (1.8-2.4) mg/dl C-Reactive Protein 11.4 H* (<1.0) mg/dL 09/02/16 09/02/16 Range/Units 05:40 05:40 WBC (4.23-9.07) K/mm3 RBC (4.63-6.08) M/mm3 Hgb (13.7-17.5) gm/L Hct (40.1-51.0) % MCV (79.0-92.2) fl MCH (25.7-32.2) pg MCHC (32.2-35.5) g/dl RDW Std Deviation (35.1-43.9) fL Plt Count (163-337) K/mm3 MPV (9.4-12.3) fl Neut % (Auto) (34.0-67.9) % Lymph % (Auto) (21.8-53.1) % [place] % (Auto) (5.3-12.2) % Eos % (Auto) (0.8-7.0) Baso % (Auto) (0.1-1.2) % Neut # (Auto) (1.78-5.38) K/mm3 Lymph # (Auto) (1.32-3.57) K/mm3 [place] # (Auto) (0.30-0.82) K/mm3 Eos # (Auto) (0.04-0.54) K/mm3 Baso # (Auto) (0.01-0.08) K/mm3 Manual Slide Review PT 31.4 H (8.0-13.0) SECONDS INR 2.70 Sodium 139 (136-145) mEq/L Potassium 4.0 (3.5-5.1) mEq/L Chloride 104 (98-107) mEq/L Carbon Dioxide 30 (21-32) mEq/L Anion Gap 9.0 (5-15) BUN 14 (7-18) mg/dL Creatinine 1.1 (0.7-1.3) mg/dL Est Cr Clr Drug Dosing 79.28 mL/min Estimated GFR (MDRD) > 60 (>60) mL/min BUN/Creatinine Ratio 12.7 L (14-18) Glucose 90 (74-106) mg/dL Calcium 8.7 (8.5-10.1) mg/dL Magnesium 1.7 L (1.8-2.4) mg/dl C-Reactive Protein 8.2 H* (<1.0) mg/dL Abhijit Results last 24 hrs: Microbiology 08/31/16 11:35 Gram Stain - Final Sputum - Expectorated 08/31/16 01:20 Legionella Urinary Antigen - Final Urine 08/31/16 01:20 Streptococcus pneumoniae Antigen (M - Final Urine Med Orders - Current: Current Medications Acetaminophen (Tylenol) 650 mg PO Q4H PRN PRN Reason: Pain (Mild 1-3)/fever Last Admin: 09/01/16 04:23 Dose: 650 mg Hydrocodone Bitart/Acetaminophen ([place] 325-5 Mg) 1 tab PO Q4H PRN PRN Reason: Pain (moderate 4-6) Last Admin: 09/01/16 21:07 Dose: 1 tab Acetazolamide (Diamox) 250 mg PO Q48H [facility] Last Admin: 08/31/16 08:13 Dose: 250 mg Albuterol/Ipratropium (Duoneb 3.0-0.5 Mg/3 Ml) 3 ml NEB Q4H PRN PRN Reason: Shortness Of Breath/wheezing Last Admin: 09/01/16 06:30 Dose: 3 ml Aspirin (Aspirin) 81 mg PO DAILY [facility] Last Admin: 09/01/16 08:50 Dose: 81 mg Bisacodyl (Dulcolax) 5 mg PO DAILY PRN PRN Reason: Constipation Docusate Sodium (Colace) 100 mg PO BID PRN PRN Reason: Constipation Enoxaparin Sodium (Lovenox) 105 mg SUBCUT BID [facility] Last Admin: 09/01/16 21:08 Dose: 105 mg Guaifenesin (Mucinex) 1,200 mg PO BID [facility] Last Admin: 09/01/16 21:07 Dose: 1,200 mg Hydralazine HCl (Apresoline) 20 mg IVPUSH Q4H PRN PRN Reason: Hypertension Hydromorphone HCl (Dilaudid) 0.25 mg IVPUSH Q2H PRN PRN Reason: Pain (severe 7-10) Azithromycin 500 mg/ Sodium (Chloride) 250 mls @ 250 mls/hr IV Q24H [facility] Last Admin: 09/01/16 14:54 Dose: 250 mls/hr Ceftriaxone Sodium 1 gm/ (Sodium Chloride) 100 mls @ 200 mls/hr IV Q24H [facility] Last Admin: 09/01/16 14:10 Dose: 200 mls/hr Loratadine (Claritin) 10 mg PO DAILY [facility] Last Admin: 09/01/16 08:51 Dose: 10 mg Magnesium Sulfate (Pharmacy To Dose - Magnesium Replacement) 1 dose .XX ASDIRECTED [facility] Metoprolol Tartrate (Lopressor) 5 mg IVPUSH Q4H PRN PRN Reason: Tachycardia Ondansetron HCl (Zofran) 4 mg IV Q6H PRN PRN Reason: Nausea/Vomiting Oxymetazoline HCl (Afrin Original 0.05% Nasal [place]) 15 ml JACI DAILY [facility] Last Admin: 09/01/16 08:51 Dose: 1 spray Pantoprazole Sodium (Protonix) 40 mg PO DAILY [facility] Last Admin: 09/01/16 08:50 Dose: 40 mg D-Methorphan Hb/P- [place] Hcl/Cp [Pedia Relief Cough-Cold] 0 each PO Q4H PRN PRN Reason: cold symptoms Potassium Chloride (Pharmacy To Dose - Potassium Replacement) 1 dose .XX ASDIRECTED [facility] Saccharomyces Boulardii (Florastor) 250 mg PO BID [facility] Last Admin: 09/01/16 21:07 Dose: 250 mg Senna/Docusate Sodium (Senna Plus) 1 tab PO BID PRN PRN Reason: Constipation Sodium Chloride (Saline Flush) 10 ml FLUSH ASDIRECTED PRN PRN Reason: Keep Vein Open Last Admin: 08/30/16 13:10 Dose: 10 ml Temazepam (Restoril) 15 mg PO BEDTIME PRN PRN Reason: Sleep Trimethoprim/Sulfamethoxazole (Septra Ds) 1 tab PO BID [facility] Last Admin: 09/01/16 21:07 Dose: 1 tab Warfarin Sodium (Pharmacy To Dose - Warfarin) 1 dose .XX ASDIRECTED [facility] Discontinued Medications Acetaminophen (Tylenol) 650 mg PO Q4H PRN PRN Reason: Pain/Fever Albuterol (Proventil Neb Soln) 2.5 mg NEB ONETIME ONE Stop: 08/30/16 13:33 Last Admin: 08/30/16 13:51 Dose: 2.5 mg Furosemide (Lasix) 60 mg IVPUSH NOW ONE Stop: 08/30/16 12:00 Last Admin: 08/30/16 12:57 Dose: 60 mg Furosemide (Lasix) 20 mg IVPUSH NOW ONE Stop: 08/31/16 10:37 Last Admin: 08/31/16 11:18 Dose: 20 mg Sodium Chloride (Normal Saline) 1,000 mls @ 75 mls/hr IV ASDIRECTED [facility] Last Admin: 08/31/16 03:52 Dose: 75 mls/hr Azithromycin 500 mg/ Sodium (Chloride) 250 mls @ 250 mls/hr IV ONETIME ONE Stop: 08/30/16 14:34 Last Admin: 08/30/16 14:46 Dose: 250 mls/hr Ceftriaxone Sodium 2 gm/ (Sodium Chloride) 100 mls @ 200 mls/hr IV ONETIME ONE Stop: 08/30/16 14:04 Last Admin: 08/30/16 14:01 Dose: 200 mls/hr Magnesium Sulfate 2 gm/ Premix 50 mls @ 25 mls/hr IV ONETIME ONE Stop: 08/31/16 09:44 Last Admin: 08/31/16 08:12 Dose: 25 mls/hr Potassium Chloride (Klor-Con M20) 20 meq PO Q3H [facility]ARY Stop: 09/01/16 11:01 Last Admin: 09/01/16 11:31 Dose: 20 meq Warfarin Sodium (Coumadin) 4 mg PO FRSA [facility] Warfarin Sodium (Coumadin) 6 mg PO MOTUWETHSA [facility] Last Admin: 08/30/16 17:05 Dose: Not Given Warfarin Sodium (Coumadin) 4 mg PO ONETIME ONE Stop: 08/31/16 18:01 Last Admin: 08/31/16 17:35 Dose: 4 mg Warfarin Sodium (Coumadin) 6 mg PO ONETIME ONE Stop: 09/01/16 18:01 Last Admin: 09/01/16 17:30 Dose: 6 mg - Exam Quality Assessment: supplemental oxygen General: alert, cooperative, no acute distress, other (Obese) HEENT: Pupils equal, Pupils reactive, EOMI, Mucous membr. moist/pink Neck: supple, trachea midline, no JVD, no thyromegaly, other (short and thick) Lungs: Normal respiratory effort, Wheezing Cardiovascular: Regular Rate, Regular Rhythm Abdomen: bowel sounds present, soft, no tenderness (Male) Exam: Deferred Back Exam: normal inspection, decreased range of motion Extremities: no edema, normal pulses, no tenderness/swelling, no clubbing, no cyanosis, no calf tenderness Peripheral Pulses: 3+: posterior tibial (L), posterior tibial (R), dorsalis pedis (L), dorsalis pedis (R) Skin: warm, dry, intact Neurological: no new focal deficit Psy/Mental Status: alert, normal affect, normal mood - Problem List Review Problem List Initiated/Reviewed/Updated: Yes - My Orders Last 24 Hours: My Active Orders 09/01/16 15:00 Enoxaparin [Lovenox] 105 mg SUBCUT BID 09/02/16 05:11 Chest 2V [CR] AM 09/03/16 05:11 BASIC METABOLIC PANEL,BMP [CHEM] AM C-REACTIVE PROTEIN [CHEM] AM CBC WITH AUTO DIFF [HEME] AM INR,PT,PROTHROMBIN TIME [COAG] AM MAGNESIUM [CHEM] AM 09/04/16 05:11 BASIC METABOLIC PANEL,BMP [CHEM] AM INR,PT,PROTHROMBIN TIME [COAG] AM - Plan Plan:: Assessment/Plan: Acute: Community Acquired Pneumonia - Seen on PCP's office, concerns for pneumonia, he was sent to ED for further eval - CXR bilateral infiltrate (I as not able to view it) -- Repeat one view chest this am with LLL pna noted, rt sided haziness present as well. - IV Azithromycin and Rocephin - Supplemental O2, Bronchodilators, IS and FV q2 awake and Cough Decongestant - Mycoplasma negative - Legionella and Strep Ag test - also negative - CXR series- repeat tomorrow to follow - CRP improving Supratherapeutic INR - INR is 3.67---> 3.8 ---> 2.57--> 2.7 today - Pharmacy to monitor - Started Lovenox SubQ BID yesterday - Per [facility] coumadin clinic, recommend INR at 3-4 with two metal valves Weight Gain of 18lbs - Dietary consult for weight management Hypomagnesemia - Replete and monitor daily Mag and K+ levels - Will add MagOx 400 mg po BID first dose now Chronic: Atrial Fibrillation, HR Controlled on Warfarin Heart Valve Replacement (2 Prosthetic Valves- metal) S/p Pacemaker Placement Down Syndrome Hx/o Heart Failure Hx/o Tetralogy of Fallot Chronic Hypoxemia 2/2 Cardiac Defect O2 Dependence Obesity with BMI of 42 Plan: He is clinically stable Continue current treatment Routine AM Labs Daily INR 1:1 Care unless he be moved close to the front desk coordinator Resume home meds Continue PT/OT/RT SW/CM for d/c planning Code status: DNR/DNI LOS < 96rhs good response thus far; plan for 2-3 more days of IV Abx prior to discharge and make sure his INR is at therapeutic range
--- NOTE | 2016-09-02 08:30 | CR ---
Chest: 2 views of the chest were obtained. Comparison: Previous chest x-ray of 08/31/16. Heart is mildly enlarged. Pulmonary vessel are congested which appears fairly stable. Sternotomy noted for prosthetic heart valve placement. Epicardial wires are seen. Bony structures are unremarkable for the patient's age. Very slight blunting of the left lateral and posterior costophrenic angle is seen which appears chronic. Impression: 1. Cardiomegaly and stable pulmonary vascular congestion. Other incidental findings which are stable as described above. Diagnostic code #2
[2016-09-02] MEDS: Oxymetazoline 0.05% Nasal Spray 15 ML Bottle NAS SCH (08:48)
[2016-09-02] MEDS: guaiFENesin 600 MG Tab.ER PO SCH ×3 (08:48→21:18)
[2016-09-02] MEDS: Aspirin 81 MG Tab.Chew PO SCH (08:48)
[2016-09-02] MEDS: Enoxaparin 120 MG/0.8 ML Syringe SUBCUT SCH ×3 (08:48→21:16)
[2016-09-02] MEDS: Pantoprazole 40 MG Tab.CR PO SCH (08:48)
[2016-09-02] MEDS: acetaZOLAMIDE 250 MG Tab PO SCH (08:48)
[2016-09-02] MEDS: Sulfamethoxazole/Trimethoprim 800-160 MG Tab PO SCH ×3 (08:48→21:18)
[2016-09-02] MEDS: Loratadine 10 MG Tab PO SCH (08:48)
[2016-09-02] MEDS: Saccharomyces Boulardii (Probiotic) 250 MG Cap PO SCH ×3 (08:48→21:16)
[2016-09-02] MEDS ORDERED: Magnesium Sulfate/Water 2 GM in Premix Bag 1 BAG IV ONE (11:30)
[2016-09-02] MEDS ORDERED: Furosemide 20 MG/2 ML VIAL IVPUSH ONE (13:08)
[2016-09-02] MEDS ORDERED: Magnesium Oxide 400 MG Tab PO ONE (13:14)
[2016-09-02] MEDS: cefTRIAXone 1 GM in Sodium Chloride 0.9% 100 ML IV SCH (13:38)
[2016-09-02] MEDS: Azithromycin 500 MG in Sodium Chloride 0.9% 250 ML IV SCH (14:14)
[2016-09-02] MEDS ORDERED: Warfarin 4 MG Tab PO SCH (18:00)
[2016-09-02] MEDS: Magnesium Oxide 400 MG Tab PO SCH ×2 (19:50→21:17)
--- NOTE | 2016-09-03 07:50 | CR ---
Chest: Portable view of the chest was obtained. Comparison: Previous chest x-ray of 09/02/16. Heart is enlarged. Sternotomy is noted with prosthetic heart valve. Epicardial wires are seen. Lungs are clear. Pulmonary vascular congestion are seen previously shows improvement on current exam. Impression: 1. Improved pulmonary vascular congestion from prior exam. 2. Other portions of the chest are stable. Diagnostic code #2
[2016-09-03] MEDS: Loratadine 10 MG Tab PO SCH (08:26)
[2016-09-03] MEDS: Magnesium Oxide 400 MG Tab PO SCH (08:26)
[2016-09-03] MEDS: Pantoprazole 40 MG Tab.CR PO SCH (08:26)
[2016-09-03] MEDS: Sulfamethoxazole/Trimethoprim 800-160 MG Tab PO SCH (08:26)
[2016-09-03] MEDS: Oxymetazoline 0.05% Nasal Spray 15 ML Bottle NAS SCH (08:27)
[2016-09-03] MEDS: Aspirin 81 MG Tab.Chew PO SCH (08:27)
[2016-09-03] MEDS: Saccharomyces Boulardii (Probiotic) 250 MG Cap PO SCH (08:28)
[2016-09-03] MEDS: guaiFENesin 600 MG Tab.ER PO SCH (08:35)
[2016-09-03] MEDS: Enoxaparin 120 MG/0.8 ML Syringe SUBCUT SCH (08:36)
--- NOTE | 2016-09-03 09:23 | PCM.DCSUM1 ---
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 He was initially seen at his PCP office and was found to have bilateral pneumonia. Patient was admitted for medical management of his CAP. - Discharge Data Discharge Date: 09/03/16 Discharge Disposition: Home, Self-Care 01 Condition: Good - Discharge Diagnosis/Problem(s) (1) Community acquired pneumonia SNOMED Code(s): 530916523 ICD Code: J18.9 - PNEUMONIA, UNSPECIFIED ORGANISM Status: Resolved Priority: High - Patient Summary/Data Operative Procedure(s) Performed: None Complications: None Consults: Consultations 08/30/16 16:51 Consult to Case Management [CONS] Routine Consult to Strip Mill Operator [CONS] Routine OT Evaluation and Treatment [CONS] Routine PT Evaluation and Treatment [CONS] Routine 08/30/16 23:23 Consult to Dietary [Consult to Agriculture Sales Account Manager] [CONS] Routine Hospital Course: Patient was primarily admitted for medical management of CAP. He was diagnosed at his PCP's office for bilateral pneumonia and was sent over for inpatient treatment. His sputum, blood culture, Influenza Screening, Legionella Ag and Strep Ag all negative. Patient received adequate Supportive and Respiratory Care along with IV antibiotics to improve his symptoms. A total of 5 doses of both Azithromycin and Rocephin were given to him on this admission. His last CXR showed resolution of his bilateral pneumonia. His hospital course was fairly uncomplicated. He did have a drop on his INR level but we were quick to bring it back to the target goal of bet 3-4. His most recent INR is at 3.54. The rest of his chronic medical illness remained stable during this admission. Patient is now ready for discharged. He will not need any additional course of antibiotics to complete. He is to continue with incentive spirometry as directed for 1 week. [facility] staff was informed, patient is to follow up with his PCP in 1-2 weeks. We expect he continues to do well right after discharge. - Patient Instructions Diet: Usual Diet as Tolerated Activity: As Tolerated Driving: Do Not Drive Showering/Bathing: May Shower Notify Provider of: Fever, Nausea and/or Vomiting Other/Special Instructions: - Please take all medications as directed. - Follow up with your doctor in 1-2 weeks after discharge. - Come back or seek immediate care if your symptom persists or gets worse - Discharge Plan Home Medications: Home Meds Aspirin [Artemio Chewable Aspirin] 81 mg PO DAILY 12/18/13 [History] Warfarin Sodium [Coumadin] 6 mg PO MOTUWETHSA 12/18/13 [History] Sulfamethoxazole/Trimethoprim [Sulfamethoxazole-Tmp Ds Tablet] 1 tab PO BID [History] Acetaminophen 650 mg PO Q4H PRN 08/30/16 [History] D-Methorphan Hb/P-Ephed HCl/Cp [Pedia Relief Cough-Cold] 4 tsp PO Q4H PRN [History] Omeprazole 20 mg PO DAILY 08/30/16 [History] Warfarin Sodium [Coumadin] 4 mg PO SUFR 08/30/16 [History] acetaZOLAMIDE [Acetazolamide] 250 mg PO Q48H 08/30/16 [History] Patient Handouts: Oxygen Use at Home, Community-Acquired Pneumonia, Adult, Easy -to-Read Referrals: Huyen Herring MD [Primary Care Provider] - (Please follow-up with Dr. Herring.) - Discharge Summary/Plan Comment DC Time >30 min.: No (30 mins) Discharge Summary/Plan Comment: Discharge to Home - General Info Date of Service: 09/03/16 Admission Dx/Problem (Free Text: Admission Diagnosis/Problem Admission Diagnosis/Problem Pneumonia Subjective Update: Follow up Functional Status: Reports: pain controlled, tolerating diet, ambulating, urinating. Denies: new symptoms - Review of Systems General: Denies: Fever, Chills HEENT: Reports: no symptoms Pulmonary: Reports: shortness of breath Cardiovascular: Denies: Chest Pain, Palpitations, Dyspnea on Exertion Gastrointestinal: Denies: Abdominal pain, Constipation, Diarrhea, Difficulty swallowing, Nausea, Vomiting Genitourinary: Reports: no symptoms Musculoskeletal: Reports: no symptoms Skin: Denies: cyanosis Neurological: Denies: Confusion, Difficulty Walking, Weakness, Gait Disturbance Psychiatric: Denies: depression, mood lability, agitation, hallucinations Systems Review Comment: No overnight or acute issues. He is doing relatively well. Follow up CXR shows improved lungs. - Patient Data Vitals - Most Recent: Last Vital Signs Temp 37.1 C 09/03/16 08:00 Pulse 78 09/03/16 08:00 Resp 16 09/02/16 19:35 BP 128/66 09/02/16 19:35 Pulse Ox 91 L 09/02/16 19:35 Weight - Most Recent: 105.233 kg I&O - Last 24 hours: Intake & Output 09/02/16 09/03/16 09/03/16 22:59 06:59 14:59 Intake Total 1200 300 Output Total 2250 1400 Balance -1050 -1100 Lab Results - Last 24 hrs: Laboratory Results - last 24 hr 09/03/16 09/03/16 09/03/16 Range/Units 05:56 05:56 05:56 WBC 4.61 (4.23-9.07) K/mm3 RBC 4.49 L (4.63-6.08) M/mm3 Hgb 14.0 (13.7-17.5) gm/L Hct 43.3 (40.1-51.0) % MCV 96.4 H (79.0-92.2) fl MCH 31.2 (25.7-32.2) pg MCHC 32.3 (32.2-35.5) g/dl RDW Std Deviation 49.3 H (35.1-43.9) fL Plt Count 263 (163-337) K/mm3 MPV 9.5 (9.4-12.3) fl Neut % (Auto) 51.9 (34.0-67.9) % Lymph % (Auto) 28.4 (21.8-53.1) % [place] % (Auto) 8.0 (5.3-12.2) % Eos % (Auto) 8.2 H (0.8-7.0) Baso % (Auto) 1.5 H (0.1-1.2) % Neut # (Auto) 2.39 (1.78-5.38) K/mm3 Lymph # (Auto) 1.31 L (1.32-3.57) K/mm3 [place] # (Auto) 0.37 (0.30-0.82) K/mm3 Eos # (Auto) 0.38 (0.04-0.54) K/mm3 Baso # (Auto) 0.07 (0.01-0.08) K/mm3 PT 41.8 H (8.0-13.0) SECONDS INR 3.54 Sodium 138 (136-145) mEq/L Potassium 4.0 (3.5-5.1) mEq/L Chloride 103 (98-107) mEq/L Carbon Dioxide 28 (21-32) mEq/L Anion Gap 11.0 (5-15) BUN 14 (7-18) mg/dL Creatinine 1.1 (0.7-1.3) mg/dL Est Cr Clr Drug Dosing 79.28 mL/min Estimated GFR (MDRD) > 60 (>60) mL/min BUN/Creatinine Ratio 12.7 L (14-18) Glucose 93 (74-106) mg/dL Calcium 8.5 (8.5-10.1) mg/dL Magnesium 2.0 (1.8-2.4) mg/dl C-Reactive Protein 4.2 H* (<1.0) mg/dL Med Orders - Current: Current Medications Acetaminophen (Tylenol) 650 mg PO Q4H PRN PRN Reason: Pain (Mild 1-3)/fever Last Admin: 09/01/16 04:23 Dose: 650 mg Hydrocodone Bitart/Acetaminophen (Howard 325-5 Mg) 1 tab PO Q4H PRN PRN Reason: Pain (moderate 4-6) Last Admin: 09/01/16 21:07 Dose: 1 tab Acetazolamide (Diamox) 250 mg PO Q48H [facility] Last Admin: 09/02/16 08:48 Dose: 250 mg Albuterol/Ipratropium (Duoneb 3.0-0.5 Mg/3 Ml) 3 ml NEB Q4H PRN PRN Reason: Shortness Of Breath/wheezing Last Admin: 09/01/16 06:30 Dose: 3 ml Aspirin (Aspirin) 81 mg PO DAILY [facility] Last Admin: 09/03/16 08:27 Dose: 81 mg Bisacodyl (Dulcolax) 5 mg PO DAILY PRN PRN Reason: Constipation Docusate Sodium (Colace) 100 mg PO BID PRN PRN Reason: Constipation Guaifenesin (Mucinex) 1,200 mg PO BID [facility] Last Admin: 09/03/16 08:35 Dose: 1,200 mg Hydralazine HCl (Apresoline) 20 mg IVPUSH Q4H PRN PRN Reason: Hypertension Hydromorphone HCl (Dilaudid) 0.25 mg IVPUSH Q2H PRN PRN Reason: Pain (severe 7-10) Azithromycin 500 mg/ Sodium (Chloride) 250 mls @ 250 mls/hr IV Q24H [facility] Last Admin: 09/02/16 14:14 Dose: 250 mls/hr Ceftriaxone Sodium 1 gm/ (Sodium Chloride) 100 mls @ 200 mls/hr IV Q24H [facility] Last Admin: 09/02/16 13:38 Dose: 200 mls/hr Loratadine (Claritin) 10 mg PO DAILY [facility] Last Admin: 09/03/16 08:26 Dose: 10 mg Magnesium Oxide (Magnesium Oxide) 400 mg PO BID [facility] Last Admin: 09/03/16 08:26 Dose: 400 mg Magnesium Sulfate (Pharmacy To Dose - Magnesium Replacement) 1 dose .XX ASDIRECTED [facility] Metoprolol Tartrate (Lopressor) 5 mg IVPUSH Q4H PRN PRN Reason: Tachycardia Ondansetron HCl (Zofran) 4 mg IV Q6H PRN PRN Reason: Nausea/Vomiting Oxymetazoline HCl (Afrin Original 0.05% Nasal [place]) 15 ml JACI DAILY [facility] Last Admin: 09/03/16 08:27 Dose: 1 spray Pantoprazole Sodium (Protonix) 40 mg PO DAILY [facility] Last Admin: 09/03/16 08:26 Dose: 40 mg D-Methorphan Hb/P- Ephed Hcl/Cp [Pedia Relief Cough-Cold] 0 each PO Q4H PRN PRN Reason: cold symptoms Potassium Chloride (Pharmacy To Dose - Potassium Replacement) 1 dose .XX ASDIRECTED [facility] Saccharomyces Boulardii (Florastor) 250 mg PO BID [facility] Last Admin: 09/03/16 08:28 Dose: 250 mg Senna/Docusate Sodium (Senna Plus) 1 tab PO BID PRN PRN Reason: Constipation Sodium Chloride (Saline Flush) 10 ml FLUSH ASDIRECTED PRN PRN Reason: Keep Vein Open Last Admin: 08/30/16 13:10 Dose: 10 ml Temazepam (Restoril) 15 mg PO BEDTIME PRN PRN Reason: Sleep Trimethoprim/Sulfamethoxazole (Septra Ds) 1 tab PO BID [facility] Last Admin: 09/03/16 08:26 Dose: 1 tab Warfarin Sodium (Pharmacy To Dose - Warfarin) 1 dose .XX ASDIRECTED [facility] Discontinued Medications Acetaminophen (Tylenol) 650 mg PO Q4H PRN PRN Reason: Pain/Fever Albuterol (Proventil Neb Soln) 2.5 mg NEB ONETIME ONE Stop: 08/30/16 13:33 Last Admin: 08/30/16 13:51 Dose: 2.5 mg Enoxaparin Sodium (Lovenox) 105 mg SUBCUT BID [facility] Last Admin: 09/03/16 08:36 Dose: 105 mg Furosemide (Lasix) 60 mg IVPUSH NOW ONE Stop: 08/30/16 12:00 Last Admin: 08/30/16 12:57 Dose: 60 mg Furosemide (Lasix) 20 mg IVPUSH NOW ONE Stop: 08/31/16 10:37 Last Admin: 08/31/16 11:18 Dose: 20 mg Furosemide (Lasix) 20 mg IVPUSH NOW ONE Stop: 09/02/16 13:09 Last Admin: 09/02/16 13:38 Dose: 20 mg Sodium Chloride (Normal Saline) 1,000 mls @ 75 mls/hr IV ASDIRECTED [facility] Last Admin: 08/31/16 03:52 Dose: 75 mls/hr Azithromycin 500 mg/ Sodium (Chloride) 250 mls @ 250 mls/hr IV ONETIME ONE Stop: 08/30/16 14:34 Last Admin: 08/30/16 14:46 Dose: 250 mls/hr Ceftriaxone Sodium 2 gm/ (Sodium Chloride) 100 mls @ 200 mls/hr IV ONETIME ONE Stop: 08/30/16 14:04 Last Admin: 08/30/16 14:01 Dose: 200 mls/hr Magnesium Sulfate 2 gm/ Premix 50 mls @ 25 mls/hr IV ONETIME ONE Stop: 08/31/16 09:44 Last Admin: 08/31/16 08:12 Dose: 25 mls/hr Magnesium Sulfate 2 gm/ Premix 50 mls @ 25 mls/hr IV ONETIME ONE Stop: 09/02/16 13:29 Last Admin: 09/02/16 11:51 Dose: 25 mls/hr Magnesium Oxide (Magnesium Oxide) 400 mg PO ONETIME ONE Stop: 09/02/16 13:15 Last Admin: 09/02/16 13:38 Dose: 400 mg Potassium Chloride (Klor-Con M20) 20 meq PO Q3H [facility] Stop: 09/01/16 11:01 Last Admin: 09/01/16 11:31 Dose: 20 meq Warfarin Sodium (Coumadin) 4 mg PO FRSA [facility] Warfarin Sodium (Coumadin) 6 mg PO MOTUWETHSA [facility] Last Admin: 08/30/16 17:05 Dose: Not Given Warfarin Sodium (Coumadin) 4 mg PO ONETIME ONE Stop: 08/31/16 18:01 Last Admin: 08/31/16 17:35 Dose: 4 mg Warfarin Sodium (Coumadin) 6 mg PO ONETIME ONE Stop: 09/01/16 18:01 Last Admin: 09/01/16 17:30 Dose: 6 mg Warfarin Sodium (Coumadin) 8 mg PO QPM [facility] Stop: 09/02/16 21:00 Last Admin: 09/02/16 17:48 Dose: 8 mg - Exam Quality Assessment: Reports: supplemental oxygen General: Reports: alert, cooperative, no acute distress, other (Morbidly Obese) HEENT: Reports: Pupils equal, Pupils reactive, EOMI, Mucous membr. moist/pink Neck: Reports: supple, trachea midline, no JVD, no thyromegaly, other (short and thick) Lungs: Reports: Normal respiratory effort, Rhonchi Cardiovascular: Reports: Regular Rate, Regular Rhythm Abdomen: Reports: bowel sounds present, soft, no tenderness, no distension, other (Obese) (Male) Exam: Deferred Rectal (Males) Exam: Deferred Back Exam: Reports: normal inspection, decreased range of motion Extremities: Reports: no edema, normal pulses, no tenderness/swelling, no clubbing, no cyanosis, no calf tenderness Skin: Reports: warm, dry, intact Neurological: Reports: no new focal deficit Psy/Mental Status: Reports: alert, normal affect, normal mood *Q Meaningful Use (DIS) - VTE *Q VTE Criteria *Q: - Stroke *Q Stroke Criteria *Q: - AMI *Q AMI Criteria *Q:
[2016-09-03] MEDS ORDERED: Bumetanide 1 MG/4 ML MDV IVPUSH ONE (09:39)
[2016-09-03] MEDS: cefTRIAXone 1 GM in Sodium Chloride 0.9% 100 ML IV SCH (13:05)
[2016-09-03 14:41] VITALS: BP 126/72
== END 2016-09-03 14:02 | disposition home or self-care (01) | DRG 194 ==
LOC: JD.ED 10:50 → JD.MS 14:51
PROVIDERS: ADMIT Internal Medicine; ATTEND Internal Medicine
DX: J18.9 Pneumonia, unspecified organism (principal); I38 Endocarditis, valve unspecified; Z68.41 Body mass index [BMI] 40.0-44.9, adult; R09.02 Hypoxemia; Q90.9 Down syndrome, unspecified; E83.42 Hypomagnesemia; I48.91 Unspecified atrial fibrillation; Z95.2 Presence of prosthetic heart valve; Z79.01 Long term (current) use of anticoagulants; Z95.0 Presence of cardiac pacemaker; Z79.82 Long term (current) use of aspirin; Z79.899 Other long term (current) drug therapy; R79.1 Abnormal coagulation profile; R63.5 Abnormal weight gain; Z99.81 Dependence on supplemental oxygen; E66.9 Obesity, unspecified; Z66 Do not resuscitate; J45.909 Unspecified asthma, uncomplicated
CPT/HCPCS: 36415; 71010; 71010-26; 71020; 71020-26; 80048; 80053; 81001; 83735; 83880; 84484; 85025; 85610; 86140; 86738; 87040; 87070; 87081; 87205; 87430; 87641; 87804; 87899; 93005; 94640-76; 94664; 94667; 94668; 94761; 96365; 96375; 97110-GP; 97116-GP; 97161-GP; 97166-GO; 97530-GP; 99284; 99285-25; A9270-GY; J0456; J0696; J1650; J1940; J3475; J7030; J7040; J7050

== ENCOUNTER 2017-11-11 22:33 | Emergency (ER) | payer MEDICAID, OTHER ==
[2017-11-11 22:48] VITALS: BP 135/71
--- NOTE | 2017-11-11 23:08 | EDM.PDOC ---
ED HPI GENERAL MEDICAL PROBLEM - General Chief Complaint: Chest Pain Stated Complaint: CHEST PAIN WHEN LAYING DOWN Time Seen by Provider: 11/11/17 23:07 - History of Present Illness INITIAL COMMENTS - FREE TEXT/NARRATIVE: 27-year-old male presents to the emergency room with chest pain while laying down. Patient might be having a little bit more congestion. He's noticed increasing discomfort when he lies down. Patient has remarkable cardiac history for congenital heart disease he has chronic A. fib pacemaker and is anticoagulated. He has a bit of a cough nonproductive he has not noticed any fevers or chills but he has not been himself sometimes the pain causes him to tear. 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 chest Pain Score (Numeric/FACES): 10 - Related Data Allergies Allergy/AdvReac Type Severity Reaction Status Date / Time amoxicillin [Amoxicillin] Allergy Rash Verified 11/11/17 22:41 Home Meds: Home Meds Aspirin [Artemio Chewable Aspirin] 81 mg PO DAILY 12/18/13 [History] Warfarin Sodium [Coumadin] 6 mg PO TUTHSA 12/18/13 [History] Acetaminophen 650 mg PO Q4H PRN 08/30/16 [History] D-Methorphan Hb/P-Ephed HCl/Cp [Pedia Relief Cough-Cold] 4 tsp PO Q4H PRN [History] Omeprazole 20 mg PO DAILY 08/30/16 [History] acetaZOLAMIDE [Acetazolamide] 250 mg PO Q48H 08/30/16 [History] Albuterol [Proventil Neb Soln] 0.083 mg NEB Q4HR PRN 11/11/17 [History] Cephalexin [Keflex] 500 mg PO ASDIRECTED 11/11/17 [History] Rosuvastatin [Crestor] 5 mg PO DAILY 11/11/17 [History] Sulfamethoxazole/Trimethoprim [Bactrim 400-80 MG] 1 each PO DAILY 11/11/17 [ History] Warfarin Sodium [Jantoven] 4 mg PO SUMOWEFR 11/11/17 [History] Past Medical History HEENT History: Reports: Impaired Vision Cardiovascular History: Reports: Afib, Heart Valve Replacement, Pacemaker Respiratory History: Reports: Pneumonia, Recurrent, Sleep Apnea Gastrointestinal History: Reports: GERD Psychiatric History: Reports: Other (See Below) Other Psychiatric History: downsyndrome Endocrine/Metabolic History: Reports: Obesity/BMI 30+ - Past Surgical History HEENT Surgical History: Reports: None Respiratory Surgical History: Reports: None GI Surgical History: Reports: None Social & Family History - Family History Family Medical History: Noncontributory - Tobacco Use Smoking Status *Q: Never Smoker - Caffeine Use Caffeine Use: Reports: Soda - Recreational Drug Use Recreational Drug Use: No ED ROS GENERAL - Review of Systems Review Of Systems: See Below Constitutional: Reports: No Symptoms HEENT: Reports: No Symptoms Respiratory: Reports: Cough. Denies: Shortness of Breath, Wheezing, Sputum, Hemoptysis Cardiovascular: Reports: Chest Pain (Only with lying down) Endocrine: Denies: No Symptoms GI/Abdominal: Denies: No Symptoms : Denies: No Symptoms Skin: Denies: No Symptoms Neurological: Denies: No Symptoms Psychiatric: Denies: No Symptoms Hematologic/Lymphatic: Denies: No Symptoms Immunologic: Denies: No Symptoms ED EXAM, GENERAL - Physical Exam Exam: See Below Exam Limited By: No Limitations General Appearance: Alert, No Apparent Distress Eye Exam: Bilateral Eye: Normal Inspection Ears: Normal External Exam, Normal Canal, Hearing Grossly Normal, Normal TMs Throat/Mouth: Normal Inspection, Normal Lips, Normal Teeth, Normal Gums, Normal Oropharynx, Normal Voice, No Airway Compromise Head: Atraumatic, Normocephalic Neck: Normal Inspection, Supple, Non-Tender, Full Range of Motion. No: Lymphadenopathy (L), Lymphadenopathy (R) Respiratory/Chest: No Respiratory Distress, Lungs Clear, Normal Breath Sounds Cardiovascular: Regular Rate, Rhythm, No Edema, Systolic Murmur GI/Abdominal: Normal Bowel Sounds, Soft, No Mass Back Exam: Normal Inspection. No: CVA Tenderness (L), CVA Tenderness (R) Extremities: Normal Inspection, No Pedal Edema EKG INTERPRETATION EKG Date: 11/11/17 Rhythm: Other (Paced rhythm) [place]: LAD-Left [place] Deviation P-Wave: Absent (Pacemaker activity) QRS: Wide ST-T: Other (Changes consistent with a left bundle branch) QT: Normal Comparison: NA - No Prior EKG EKG Interpretation Comments: Abnormal EKG atrial-ventricular dual paced rhythm Course - Vital Signs Last Recorded V/S: Last Vital Signs Temp 36.2 C 11/11/17 22:42 Pulse 60 11/11/17 22:42 Resp 14 11/11/17 22:42 BP 135/71 11/11/17 22:42 Pulse Ox 94 L 11/11/17 22:42 - Orders/Labs/Meds Orders: Active Orders 24 hr Category Date Time Status EKG 12 Lead [EKG Documentation Completion] [RC] STAT Care 11/11/17 22:40 Active Chest 2V [CR] Stat Exams 11/11/17 23:18 Taken Labs: Laboratory Tests 11/11/17 11/11/17 11/11/17 Range/Units 23:34 23:34 23:34 WBC 6.39 (4.23-9.07) K/mm3 RBC 4.94 (4.63-6.08) M/mm3 Hgb 15.5 (13.7-17.5) gm/L Hct 46.6 (40.1-51.0) % MCV 94.3 H (79.0-92.2) fl MCH 31.4 (25.7-32.2) pg MCHC 33.3 (32.2-35.5) g/dl RDW Std Deviation 47.1 H (35.1-43.9) fL Plt Count 234 (163-337) K/mm3 MPV 9.0 L (9.4-12.3) fl Neutrophils % (Manual) 60 (40-60) % Band Neutrophils % 1 (0-10) % Lymphocytes % (Manual) 29 (20-40) % Atypical Lymphs % 0 % Monocytes % (Manual) 4 (2-10) % Eosinophils % (Manual) 5 (0.8-7.0) % Basophils % (Manual) 1 (0.2-1.2) Platelet Estimate Adequate RBC Morph Comment Normal PT 39.4 H (9.5-12.1) SECONDS INR 3.71 APTT 55 H (24-31) SECONDS Sodium 139 (136-145) mEq/L Potassium 3.9 (3.5-5.1) mEq/L Chloride 104 (98-107) mEq/L Carbon Dioxide 24 (21-32) mEq/L Anion Gap 14.9 (5-15) BUN 24 H (7-18) mg/dL Creatinine 1.4 H (0.7-1.3) mg/dL Est Cr Clr Drug Dosing 61.75 mL/min Estimated GFR (MDRD) > 60 (>60) mL/min BUN/Creatinine Ratio 17.1 (14-18) Glucose 112 H (74-106) mg/dL Calcium 8.5 (8.5-10.1) mg/dL Total Bilirubin 0.5 (0.2-1.0) mg/dL AST 20 (15-37) U/L ALT 31 (16-63) U/L Alkaline Phosphatase 79 (46-116) U/L Troponin I 0.034 (0.00-0.056) ng/mL NT-Pro-B Natriuret Pep (0-125) pg/mL Total Protein 7.0 (6.4-8.2) g/dl Albumin 3.5 (3.4-5.0) g/dl Globulin 3.5 gm/dL Albumin/Globulin Ratio 1.0 (1-2) 11/11/17 Range/Units 23:34 WBC (4.23-9.07) K/mm3 RBC (4.63-6.08) M/mm3 Hgb (13.7-17.5) gm/L Hct (40.1-51.0) % MCV (79.0-92.2) fl MCH (25.7-32.2) pg MCHC (32.2-35.5) g/dl RDW Std Deviation (35.1-43.9) fL Plt Count (163-337) K/mm3 MPV (9.4-12.3) fl Neutrophils % (Manual) (40-60) % Band Neutrophils % (0-10) % Lymphocytes % (Manual) (20-40) % Atypical Lymphs % % Monocytes % (Manual) (2-10) % Eosinophils % (Manual) (0.8-7.0) % Basophils % (Manual) (0.2-1.2) Platelet Estimate RBC Morph Comment PT (9.5-12.1) SECONDS INR APTT (24-31) SECONDS Sodium (136-145) mEq/L Potassium (3.5-5.1) mEq/L Chloride (98-107) mEq/L Carbon Dioxide (21-32) mEq/L Anion Gap (5-15) BUN (7-18) mg/dL Creatinine (0.7-1.3) mg/dL Est Cr Clr Drug Dosing mL/min Estimated GFR (MDRD) (>60) mL/min BUN/Creatinine Ratio (14-18) Glucose (74-106) mg/dL Calcium (8.5-10.1) mg/dL Total Bilirubin (0.2-1.0) mg/dL AST (15-37) U/L ALT (16-63) U/L Alkaline Phosphatase (46-116) U/L Troponin I (0.00-0.056) ng/mL NT-Pro-B Natriuret Pep 77 (0-125) pg/mL Total Protein (6.4-8.2) g/dl Albumin (3.4-5.0) g/dl Globulin gm/dL Albumin/Globulin Ratio (1-2) - Re-Assessments/Exams Free Text/Narrative Re-Assessment/Exam: 11/12/17 01:47 Recent was done well here in the department chest x-ray shows no acute cardiopulmonary changes in fact his chest x-ray looks better than the last several that a been done EKG shows no acute changes laboratory evaluation nondiagnostic of note his renal function is worsening over the last little bit no clear explanation as to why. This is discussed with his caregiver it is recommended that he follow-up with his regular physician on Sunday for recheck of his breathing and further evaluation of what could be going on with his kidney function Departure - Departure Time of Disposition: 01:48 Disposition: Home, Self-Care 01 Clinical Impression: Atypical chest pain Referrals: Huyen Herring MD [Primary Care Provider] - Forms: ED Department Discharge Additional Instructions: Return to emergency room with any questions problems worsening symptoms. Follow-up with his regular doctor on Sunday - My Orders Last 24 Hours: My Active Orders 11/11/17 22:40 EKG 12 Lead [EKG Documentation Completion] [RC] STAT 11/11/17 23:18 Chest 2V [CR] Stat - Assessment/Plan Last 24 Hours: My Active Orders 11/11/17 22:40 EKG 12 Lead [EKG Documentation Completion] [RC] STAT 11/11/17 23:18 Chest 2V [CR] Stat
--- NOTE | 2017-11-12 15:28 | CR ---
Chest: Two views of the chest were obtained. Comparison: Prior chest x-ray of 09/03/16. Heart is enlarged. Epicardial wires are seen. Prosthetic heart valves are present. Lungs are clear without acute parenchymal densities. Mild chronic-appearing pulmonary vascular congestion is seen. Bony structures are unremarkable. Sternotomy wires are seen. Impression: 1. Prosthetic heart valves. 2. Mild cardiomegaly. Mild chronic-appearing pulmonary vascular congestion. 3. Other incidental findings. Nothing acute is seen. Diagnostic code #2
== END 2017-11-12 02:00 | disposition home or self-care (01) ==
LOC: JD.ED 22:33
DX: R07.89 Other chest pain (principal); I48.91 Unspecified atrial fibrillation; K21.9 Gastro-esophageal reflux disease without esophagitis; Z95.0 Presence of cardiac pacemaker; Z79.82 Long term (current) use of aspirin; Z79.899 Other long term (current) drug therapy; Z87.01 Personal history of pneumonia (recurrent); Z79.01 Long term (current) use of anticoagulants; Z88.1 Allergy status to other antibiotic agents
CPT/HCPCS: 36415; 71046; 71046-26; 80053; 83880; 84484; 85007; 85027; 85610; 85730; 93005; 93010; 99284-25; 99285-25

== ENCOUNTER 2018-06-10 17:35 | Emergency (ER) | payer MEDICAID ==
[2018-06-10 17:49] VITALS: BP 140/60
--- NOTE | 2018-06-10 18:01 | EDM.PDOC ---
ED HPI GENERAL MEDICAL PROBLEM - General Chief Complaint: Lower Extremity Injury/Pain Stated Complaint: FELL HURT LEFT KNEE Time Seen by Provider: 06/10/18 17:51 Source of Information: Denies: Patient ( Needed. Down syndrome the exercises today and Is lower on the affected side than it is on the right side he can gently flex his leg started straight leg I x-rayed him and see much on him at all and really looks like a fairly normally degenerative changes are I pressure with excellent clear been really reluctant to sit there is delayed on this is on Coumadin so hemarthrosis. The patella but is not sure your looking at his films is normal with a partial quad tear but it doesn't look that this is Down syndrome any he has a cardiac anomaly nondemanding so he's had no loss so he is just the assisted obligating the she is healthy immobilizer to help manage his chronic crutches and a well developed and legs with extensive mature so that none Dior the flexion about 15 straight something similar already base area with you in your tomorrow in the OR tomorrow or all the clinic CANCEL relief he knows I don't her summer long line is allergies for kyphoplasty dysrhythmia because of a compression fracture involving Sunday.) Left Knee Pain Score (Numeric/FACES): 10 - Related Data Allergies Allergy/AdvReac Type Severity Reaction Status Date / Time amoxicillin [Amoxicillin] Allergy Rash Verified 06/10/18 17:49 Home Meds: Home Meds Aspirin [Artemio Chewable Aspirin] 81 mg PO DAILY 12/18/13 [History] Warfarin Sodium [Coumadin] 6 mg PO TUTHSA 12/18/13 [History] Acetaminophen 650 mg PO Q4H PRN 08/30/16 [History] D-Methorphan Hb/P-Ephed HCl/Cp [Pedia Relief Cough-Cold] 4 tsp PO Q4H PRN [History] Omeprazole 20 mg PO DAILY 08/30/16 [History] acetaZOLAMIDE [Acetazolamide] 250 mg PO Q48H 08/30/16 [History] Albuterol [Proventil Neb Soln] 0.083 mg NEB Q4HR PRN 11/11/17 [History] Rosuvastatin [Crestor] 5 mg PO DAILY 11/11/17 [History] Sulfamethoxazole/Trimethoprim [Bactrim 400-80 MG] 1 each PO DAILY 11/11/17 [ History] Warfarin Sodium [Jantoven] 4 mg PO SUMOWEFR 11/11/17 [History] cephALEXin [Keflex] 500 mg PO ASDIRECTED 11/11/17 [History] Past Medical History HEENT History: Reports: Impaired Vision Cardiovascular History: Reports: Afib, Heart Valve Replacement, Pacemaker Respiratory History: Reports: Pneumonia, Recurrent, Sleep Apnea Gastrointestinal History: Reports: GERD Psychiatric History: Reports: Other (See Below) Other Psychiatric History: downsyndrome Endocrine/Metabolic History: Reports: Obesity/BMI 30+ - Past Surgical History HEENT Surgical History: Reports: None Respiratory Surgical History: Reports: None GI Surgical History: Reports: None Social & Family History - Family History Family Medical History: Noncontributory - Caffeine Use Caffeine Use: Reports: Soda Review of Systems - Review of Systems Review Of Systems: See Below Constitutional: Reports: No Symptoms Respiratory: Reports: No Symptoms Cardiovascular: Reports: No Symptoms GI/Abdominal: Reports: No Symptoms ED EXAM, GENERAL - Physical Exam Exam: See Below Exam Limited By: No Limitations General Appearance: Alert, No Apparent Distress Respiratory/Chest: No Respiratory Distress, Lungs Clear, Normal Breath Sounds Cardiovascular: Regular Rate, Rhythm, No Edema, Other (He has 2 murmurs and a prosthetic valve) GI/Abdominal: Normal Bowel Sounds, Soft, Non-Tender, Pelvis Stable Back Exam: Normal Inspection. No: CVA Tenderness (L), CVA Tenderness (R) Extremities: Other (Examination of his knees is puzzling right knee appears fairly normal left knee the patella looks inferiorly displaced however there could be some soft tissue derangement secondary to fluid collection around the patella or more probable hemarthrosis as he is on Coumadin. I can flex his knee gently to about 15 and he has some extension capabilities but with the altered view in the worries about some degree of quadriceps disruption I did not push the issue. Neuro sensation appears to be intact in the distal foot vascular structures appear intact) Course - Vital Signs Last Recorded V/S: Last Vital Signs Temp 36.2 C 06/10/18 17:43 Pulse 60 06/10/18 17:43 Resp 18 06/10/18 17:43 BP 140/60 06/10/18 17:43 Pulse Ox 96 06/10/18 17:43 - Orders/Labs/Meds Orders: Active Orders 24 hr Category Date Time Status Knee 3V Lt [CR] Stat Exams 06/10/18 18:05 Taken - Re-Assessments/Exams Free Text/Narrative Re-Assessment/Exam: 06/10/18 19:16 Palpation we Can be somewhat deceiving as he's got significant effusion probable hemarthrosis between the skin and the patella. Fortunately he still has the ability to extend his lower leg at the knee however it appears that the patella is inferiorly department displaced it does not look that way on the x- ray so they could be a significant amount of distortion from the fluid collection. However I'm still concerned about a partial quadriceps disruption at the proximal patella. I did discuss the case with Dr. Rivera who would like to see the patient his office on Sunday he recommends a long leg posterior splint nonweightbearing. The patient will need to use his wheelchair. We did apply a posterior long leg splint. Patient is more comfortable with this in place. Departure - Departure Time of Disposition: :19 Disposition: Home, Self-Care 01 Clinical Impression: Quadriceps muscle rupture - Discharge Information Instructions: Quadriceps Tendon Tear or Disruption Rehab-SportsMed, Quadriceps Tendon Tear or Disruption Referrals: PCP,None [Ordering Only Provider] - Valdo Rivera MD [Physician] - Forms: ED Department Discharge Additional Instructions: Return to the emergency room with any questions problems worsening symptoms. Follow-up with Dr. Rivera on Sunday. Unfortunately Sandip Will need to remain nonweightbearing until he is evaluated by orthopedics. Keep his leg elevated as much is tolerable and use ice over the kneecap this will help minimize some of the swelling. Wear the splint at all times. - My Orders Last 24 Hours: My Active Orders 06/10/18 18:05 Knee 3V Lt [CR] Stat - Assessment/Plan Last 24 Hours: My Active Orders 06/10/18 18:05 Knee 3V Lt [CR] Stat
--- NOTE | 2018-06-11 08:46 | CR ---
Left knee: Three views of the left knee were obtained. Comparison: No prior knee exam is available. Findings: Soft tissue swelling is identified anteriorly below the patella. Please correlate that patient's patellar tendon is not injured or ruptured. Medial and lateral joint compartments are maintained in height. No joint effusion is seen. No fracture or other abnormality is seen. Impression: 1. Soft tissue findings as noted above. Diagnostic code #3
== END 2018-06-10 19:36 | disposition home or self-care (01) ==
LOC: JD.ED 17:35
DX: S76.112A Strain of left quadriceps muscle, fascia and tendon, initial encounter (principal); Q90.9 Down syndrome, unspecified; I48.91 Unspecified atrial fibrillation; Z88.1 Allergy status to other antibiotic agents; X58.XXXA Exposure to other specified factors, initial encounter; Z79.82 Long term (current) use of aspirin; Z79.01 Long term (current) use of anticoagulants; Z79.899 Other long term (current) drug therapy
CPT/HCPCS: 29505; 73562-26-LT; 73562-LT; 99283-25

== ENCOUNTER 2018-08-21 08:44 | Emergency (ER) | payer MEDICAID ==
[2018-08-21 08:59] VITALS: BP 134/67
[2018-08-21] MEDS ORDERED: Sodium Chloride 0.9% 10 ML Syringe FLUSH PRN (09:08)
--- NOTE | 2018-08-21 09:51 | CR ---
Chest: AP view of the chest was obtained. Comparison: Previous chest x-ray of 11/11/17. Heart is enlarged. Prosthetic heart valves are seen. Defibrillator device appears to be present. Sternotomy wires are noted. Lungs are clear with no acute parenchymal change. Bony structures are grossly intact. Impression: 1. Findings as noted above. No significant change is seen from previous chest x-ray. Diagnostic code #3
--- NOTE | 2018-08-21 10:12 | EDM.PDOC ---
ED HPI GENERAL MEDICAL PROBLEM - General Chief Complaint: Chest Pain Stated Complaint: HEART ISSUES Time Seen by Provider: 08/21/18 09:00 Source of Information: Reports: Patient, Other (ocular care technologist) History Limitations: Reports: No Limitations - History of Present Illness INITIAL COMMENTS - FREE TEXT/NARRATIVE: The patient presents with fluttering in his chest. This started today. He has no chest pain or shortness of breath. He has an extensive cardiac history. He had heart surgery as a child to fix a defect. He also had a pacemaker placed a few years ago. 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 He has not had trouble until now. He has no fever, chills, cough, congestion or runny nose. He has no swelling or pain in his legs. Onset: Gradual Duration: Hour(s): Severity: Moderate Improves with: Reports: None Worsens with: Reports: None Associated Symptoms: Reports: No Other Symptoms Chest Pain Score (Numeric/FACES): 8 - Related Data Allergies Allergy/AdvReac Type Severity Reaction Status Date / Time amoxicillin [Amoxicillin] Allergy Rash Verified 08/21/18 08:53 Home Meds: Home Meds Aspirin [Artemio Chewable Aspirin] 81 mg PO DAILY 12/18/13 [History] Acetaminophen 650 mg PO Q4H PRN 08/30/16 [History] Chlorpheniramin/Pseudoephed/Dm [Pedia Relief Cough-Cold] 4 tsp PO Q4H PRN [History] acetaZOLAMIDE [Acetazolamide] 250 mg PO Q48H 08/30/16 [History] Albuterol [Proventil Neb Soln] 0.083 mg NEB Q4HR PRN 11/11/17 [History] Rosuvastatin [Crestor] 5 mg PO BEDTIME 11/11/17 [History] Warfarin Sodium [Jantoven] 4 mg PO ASDIRECTED 11/11/17 [History] cephALEXin [Keflex] 500 mg PO ASDIRECTED 11/11/17 [History] Aloe Vera/Sodium Chloride [[place] Saline Nasal Gel] 1 applic JACI DAILY 08/21/18 [ History] Docosanol [Abreva 10%] 1 applic TOP TID PRN 08/21/18 [History] Ranitidine [Zantac] 150 mg PO BEDTIME PRN 08/21/18 [History] Sodium Chloride [Deep Sea] 1 spray JACI DAILY 08/21/18 [History] Sulfamethoxazole/Trimethoprim [Bactrim Ds Tablet] 1 each PO BID 08/21/18 [ History] Warfarin [Coumadin] 5 mg PO ASDIRECTED 08/21/18 [History] guaiFENesin [Mucus Relief] 400 mg PO BID PRN 08/21/18 [History] Past Medical History HEENT History: Reports: Impaired Vision Cardiovascular History: Reports: Afib, Heart Valve Replacement, Pacemaker Respiratory History: Reports: Pneumonia, Recurrent, Sleep Apnea Gastrointestinal History: Reports: GERD Neurological History: Reports: Speech Problems 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 Psychiatric History: Reports: Other (See Below) Other Psychiatric History: downsyndrome Endocrine/Metabolic History: Reports: Obesity/BMI 30+ - Past Surgical History Respiratory Surgical History: Reports: None GI Surgical History: Reports: None Social & Family History - Family History Family Medical History: Noncontributory - Tobacco Use Smoking Status *Q: Never Smoker - Caffeine Use Caffeine Use: Reports: None - Recreational Drug Use Recreational Drug Use: No ED ROS GENERAL - Review of Systems Review Of Systems: See Below Constitutional: Reports: No Symptoms HEENT: Reports: No Symptoms Respiratory: Reports: No Symptoms Cardiovascular: Reports: Other (Fluttering in his chest). Denies: Chest Pain Endocrine: Reports: No Symptoms GI/Abdominal: Reports: No Symptoms : Reports: No Symptoms Musculoskeletal: Reports: No Symptoms ED EXAM, GENERAL - Physical Exam Exam: See Below Exam Limited By: No Limitations General Appearance: Alert, No Apparent Distress Ears: Normal External Exam Nose: Normal Inspection Head: Atraumatic, Normocephalic Neck: Normal Inspection Respiratory/Chest: No Respiratory Distress, Lungs Clear, Normal Breath Sounds Cardiovascular: Regular Rate, Rhythm, No Edema, No Murmur EKG INTERPRETATION EKG Date: 08/21/18 Time: 08:55 Rhythm: Other (Paced rhythm) Rate (Beats/Min): 60 Course - Vital Signs Last Recorded V/S: Last Vital Signs Temp 98.1 F 08/21/18 08:53 Pulse 60 08/21/18 08:53 Resp 20 08/21/18 08:53 BP 134/67 08/21/18 08:53 Pulse Ox 97 08/21/18 08:53 - Orders/Labs/Meds Orders: Active Orders 24 hr Category Date Time Status Cardiac Monitoring [RC] . DIRECTED Care 08/21/18 09:08 Active EKG Documentation Completion [RC] STAT Care 08/21/18 09:08 Active Peripheral IV Care [RC] . DIRECTED Care 08/21/18 09:09 Active Sodium Chloride 0.9% [Saline Flush] Med 08/21/18 09:08 Active 10 ml FLUSH ASDIRECTED PRN Peripheral IV Insertion Adult [OM.PC] Stat Oth 08/21/18 09:08 Ordered Medication Orders Sodium Chloride (Saline Flush) 10 ml FLUSH ASDIRECTED PRN PRN Reason: Keep Vein Open Last Admin: 08/21/18 09:50 Dose: 10 ml Labs: Laboratory Tests 08/21/18 08/21/18 08/21/18 Range/Units 09:50 09:50 09:50 WBC 5.54 (4.23-9.07) K/mm3 RBC 5.01 (4.63-6.08) M/mm3 Hgb 16.0 (13.7-17.5) gm/L Hct 48.0 (40.1-51.0) % MCV 95.8 H (79.0-92.2) fl MCH 31.9 (25.7-32.2) pg MCHC 33.3 (32.2-35.5) g/dl RDW Std Deviation 49.4 H (35.1-43.9) fL Plt Count 198 (163-337) K/mm3 MPV 9.5 (9.4-12.3) fl Neut % (Auto) 65.5 (34.0-67.9) % Lymph % (Auto) 20.8 L (21.8-53.1) % Citrus % (Auto) 7.0 (5.3-12.2) % Eos % (Auto) 5.2 (0.8-7.0) Baso % (Auto) 1.3 H (0.1-1.2) % Neut # (Auto) 3.63 (1.78-5.38) K/mm3 Lymph # (Auto) 1.15 L (1.32-3.57) K/mm3 Citrus # (Auto) 0.39 (0.30-0.82) K/mm3 Eos # (Auto) 0.29 (0.04-0.54) K/mm3 Baso # (Auto) 0.07 (0.01-0.08) K/mm3 PT 30.9 H (9.5-12.1) SECONDS INR 2.89 Sodium 138 (136-145) mEq/L Potassium 4.1 (3.5-5.1) mEq/L Chloride 107 (98-107) mEq/L Carbon Dioxide 23 (21-32) mEq/L Anion Gap 12.1 (5-15) BUN 18 (7-18) mg/dL Creatinine 1.3 (0.7-1.3) mg/dL Est Cr Clr Drug Dosing 63.14 mL/min Estimated GFR (MDRD) > 60 (>60) mL/min BUN/Creatinine Ratio 13.8 L (14-18) Glucose 92 (74-106) mg/dL Calcium 9.0 (8.5-10.1) mg/dL Total Bilirubin 0.9 (0.2-1.0) mg/dL AST 23 (15-37) U/L ALT 34 (16-63) U/L Alkaline Phosphatase 63 (46-116) U/L Troponin I 0.022 (0.00-0.056) ng/mL Total Protein 6.9 (6.4-8.2) g/dl Albumin 3.7 (3.4-5.0) g/dl Globulin 3.2 gm/dL Albumin/Globulin Ratio 1.2 (1-2) TSH 3rd Generation 2.240 (0.358-3.74) uIU/mL Meds: Medications Generic Name Dose Route Start Last Admin Trade Name Freq PRN Reason Stop Dose Admin Sodium Chloride 10 ml 08/21/18 09:08 08/21/18 09:50 Saline Flush FLUSH 10 ml ASDIRECTED PRN Administration Keep Vein Open - Re-Assessments/Exams Free Text/Narrative Re-Assessment/Exam: 08/21/18 10:56 I ordered an IV saline lock, EKG, CXR and labs. His CXR shows nothing acute. His EKG shows a paced rhythm. His CBC and CMP look good. His troponin is negative. His TSH is negative. He had no episodes while he was here. I will discharge him home. Departure - Departure Time of Disposition: 11:00 Disposition: Home, Self-Care 01 Condition: Good Clinical Impression: Fluttering sensation of heart Referrals: Huyen Herring MD [Primary Care Provider] - 1 Week Forms: ED Department Discharge Additional Instructions: Keep taking your medication as prescribed. Keep track of when these episodes happen. Follow up with Dr Herring in 1 week. Please return if you are worse. - My Orders Last 24 Hours: My Active Orders 08/21/18 09:08 Cardiac Monitoring [RC] . DIRECTED EKG Documentation Completion [RC] STAT Sodium Chloride 0.9% [Saline Flush] 10 ml FLUSH ASDIRECTED PRN Peripheral IV Insertion Adult [OM.PC] Stat 08/21/18 09:09 Peripheral IV Care [RC] . DIRECTED - Assessment/Plan Last 24 Hours: My Active Orders 08/21/18 09:08 Cardiac Monitoring [RC] . DIRECTED EKG Documentation Completion [RC] STAT Sodium Chloride 0.9% [Saline Flush] 10 ml FLUSH ASDIRECTED PRN Peripheral IV Insertion Adult [OM.PC] Stat 08/21/18 09:09 Peripheral IV Care [RC] . DIRECTED
== END 2018-08-21 11:16 | disposition home or self-care (01) ==
LOC: JD.ED 08:44
DX: R00.2 Palpitations (principal); I48.91 Unspecified atrial fibrillation; K21.9 Gastro-esophageal reflux disease without esophagitis; Z79.899 Other long term (current) drug therapy; Z79.82 Long term (current) use of aspirin; Z88.1 Allergy status to other antibiotic agents
CPT/HCPCS: 36415; 71045; 71045-26; 80053; 84443; 84484; 85025; 85610; 93005; 93010; 99284; 99285-25

== ENCOUNTER 2018-09-03 10:56 | Emergency (ER) | payer MEDICAID ==
[2018-09-03 11:06] VITALS: BP 142/64
--- NOTE | 2018-09-03 11:22 | EDM.PDOC ---
ED HPI GENERAL MEDICAL PROBLEM - General Chief Complaint: Cardiovascular Problem Stated Complaint: CHEST PAIN Time Seen by Provider: 09/03/18 11:06 Source of Information: Reports: Patient, RN Notes Reviewed - History of Present Illness INITIAL COMMENTS - FREE TEXT/NARRATIVE: 28-year-old male has been brought here by family member with concern about possible A. fib. He has been complaining of palpitations intermittently yesterday and today. He does have history of intermittent atrial fib. He has Down's syndrome. 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 He has had no recent cough fever or chills. No apparent difficulty breathing. No recent abdominal pain or vomiting. He has been eating and drinking well, as usual. - Related Data Allergies Allergy/AdvReac Type Severity Reaction Status Date / Time amoxicillin [Amoxicillin] Allergy Rash Verified 09/03/18 11:06 Home Meds: Home Meds Aspirin [Artemio Chewable Aspirin] 81 mg PO DAILY 12/18/13 [History] acetaZOLAMIDE [Acetazolamide] 250 mg PO Q48H 08/30/16 [History] Rosuvastatin [Crestor] 5 mg PO BEDTIME 11/11/17 [History] cephALEXin [Keflex] 500 mg PO ASDIRECTED 11/11/17 [History] Aloe Vera/Sodium Chloride [[place] Saline Nasal Gel] 1 applic JACI DAILY 08/21/18 [ History] Docosanol [Abreva 10%] 1 applic TOP TID PRN 08/21/18 [History] Ranitidine [Zantac] 150 mg PO BEDTIME PRN 08/21/18 [History] Sulfamethoxazole/Trimethoprim [Bactrim Ds Tablet] 1 each PO BID 08/21/18 [ History] guaiFENesin [Mucus Relief] 400 mg PO BID 08/21/18 [History] Meloxicam [Mobic] 7.5 mg PO DAILY 09/03/18 [History] Warfarin Sodium [Jantoven] 4 mg PO SUTUTHSA 09/03/18 [History] Warfarin Sodium [Jantoven] 5 mg PO MOWEFR 09/03/18 [History] Past Medical History HEENT History: Reports: Impaired Vision Cardiovascular History: Reports: Afib, Heart Valve Replacement, Pacemaker Respiratory History: Reports: Pneumonia, Recurrent, Sleep Apnea Gastrointestinal History: Reports: GERD Neurological History: Reports: Speech Problems 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 Psychiatric History: Reports: Other (See Below) Other Psychiatric History: downsyndrome Endocrine/Metabolic History: Reports: Obesity/BMI 30+ - Past Surgical History Respiratory Surgical History: Reports: None GI Surgical History: Reports: None Social & Family History - Family History Family Medical History: Noncontributory - Caffeine Use Caffeine Use: Reports: None ED ROS GENERAL - Review of Systems Review Of Systems: See Below Constitutional: Denies: Fever, Chills, Diaphoresis HEENT: Reports: No Symptoms Respiratory: Denies: Shortness of Breath, Pleuritic Chest Pain Cardiovascular: Reports: Palpitations GI/Abdominal: Denies: Abdominal Pain, Nausea, Vomiting Musculoskeletal: Reports: No Symptoms Skin: Reports: No Symptoms Neurological: Reports: No Symptoms ED EXAM, GENERAL - Physical Exam Exam: See Below General Appearance: Alert, No Apparent Distress Throat/Mouth: Normal Inspection, Normal Oropharynx Neck: Supple Respiratory/Chest: No Respiratory Distress, Lungs Clear, Normal Breath Sounds Cardiovascular: Regular Rate, Rhythm GI/Abdominal: Soft, Non-Tender Extremities: Normal Inspection Neurological: Alert, Oriented, No Motor/Sensory Deficits Skin Exam: Dry EKG INTERPRETATION EKG Date: 09/03/18 Rhythm: Other (paced rythm, rate 60) QRS: Wide Course - Vital Signs Last Recorded V/S: Last Vital Signs Temp 97.8 F 09/03/18 11:04 Pulse 60 09/03/18 11:04 Resp 16 09/03/18 11:04 BP 142/64 H 09/03/18 11:04 Pulse Ox 100 09/03/18 11:04 - Re-Assessments/Exams Free Text/Narrative Re-Assessment/Exam: 09/03/18. clinical research monitor shows paced rhythm, regular, rate of 60 with no ectopy. Mother was mainly concerned about recurrence of somewhat frequent atrial fib with RVR that he has had in the past. His last episode of that was only 2 or 3 weeks ago. He was seen here in our ED just 10 or 12 days ago and had a very complete workup done at that time including CBC, CMP, TSH. That all did come back normal at that time so none of that will be repeated today. He is not in A. fib and that was his mother's main concern. We did monitor him here in the ED for close to an hour and he remained in the paced rhythm the whole time. Discharge instructions as documented. Departure - Departure Time of Disposition: 11:58 Disposition: Home, Self-Care 01 Condition: Fair Clinical Impression: Palpitations Instructions: Palpitations, [id number] Referrals: Huyen Herring MD [Primary Care Provider] - Forms: ED Department Discharge Additional Instructions: Continue current medications, cardiac moniter shows paced rythm, rate 60. Return to ED as needed. Follow up clinic as needed.
[2018-09-03] MEDS ORDERED: Magnesium Hydroxide 400 MG/5 ML Susp 30 ML Cup PO ONE (11:47)
== END 2018-09-03 12:07 | disposition home or self-care (01) ==
LOC: JD.ED 10:56
DX: R00.2 Palpitations (principal); I48.91 Unspecified atrial fibrillation; K21.9 Gastro-esophageal reflux disease without esophagitis; Z95.4 Presence of other heart-valve replacement; Z95.0 Presence of cardiac pacemaker; Z88.1 Allergy status to other antibiotic agents; Z79.82 Long term (current) use of aspirin; Z79.01 Long term (current) use of anticoagulants
CPT/HCPCS: 93010; 99283; 99284

== ENCOUNTER 2019-01-14 20:40 | Emergency (ER) | payer MEDICAID ==
[2019-01-14 20:52] VITALS: BP 134/68; PULSE 68
--- NOTE | 2019-01-14 21:16 | EDM.PDOC ---
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 Patient has Down syndrome and resides at [facility]. Reportedly has a cold sore. Patient picked at the scab and has had bleeding to the area since then. He is on Coumadin. This is been bleeding since about 1630 today. They have tried holding pressure but the wound continues to bleed. PCP is Dr. Herring. - Related Data Allergies Allergy/AdvReac Type Severity Reaction Status Date / Time amoxicillin [Amoxicillin] Allergy Rash Verified 01/14/19 20:52 Home Meds: Home Meds RX: Aspirin [Artemio Chewable Aspirin] 81 mg PO DAILY 12/18/13 [History] RX: acetaZOLAMIDE [Acetazolamide] 250 mg PO Q48H 08/30/16 [History] Rosuvastatin [Crestor] 5 mg PO BEDTIME 11/11/17 [History] cephALEXin [Keflex] 500 mg PO ASDIRECTED 11/11/17 [History] Aloe Vera/Sodium Chloride [[place] Saline Nasal Gel] 1 applic JACI DAILY 08/21/18 [ History] Docosanol [Abreva 10%] 1 applic TOP TID PRN 08/21/18 [History] Sulfamethoxazole/Trimethoprim [Bactrim Ds Tablet] 1 each PO BID 08/21/18 [ History] guaiFENesin [Mucus Relief] 400 mg PO BID 08/21/18 [History] Warfarin Sodium [Jantoven] 3 mg PO SUTUTHSA 09/03/18 [History] Warfarin Sodium [Jantoven] 5 mg PO MOWEFR 09/03/18 [History] RX: Albuterol [Proventil Neb Soln] 0.63 mg NEB Q4HR 01/14/19 [History] Past Medical History HEENT History: Reports: Impaired Vision Cardiovascular History: Reports: Afib, Heart Valve Replacement, Pacemaker Respiratory History: Reports: Pneumonia, Recurrent, Sleep Apnea Gastrointestinal History: Reports: GERD Genitourinary History: Reports: None Musculoskeletal History: Reports: None Neurological History: Reports: Speech Problems 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 Psychiatric History: Reports: Other (See Below) Other Psychiatric History: downsyndrome Endocrine/Metabolic History: Reports: Obesity/BMI 30+ Hematologic History: Reports: None Immunologic History: Reports: None Oncologic (Cancer) History: Reports: None Dermatologic History: Reports: None - Infectious Disease History Infectious Disease History: Reports: None - Past Surgical History Respiratory Surgical History: Reports: None GI Surgical History: Reports: None Social & Family History - Family History Family Medical History: Noncontributory - Tobacco Use Smoking Status *Q: Never Smoker - Caffeine Use Caffeine Use: Reports: Soda - Recreational Drug Use Recreational Drug Use: No ED ROS GENERAL - Review of Systems Review Of Systems: ROS reveals no pertinent complaints other than HPI. ED EXAM, GENERAL - Physical Exam Exam: See Below Exam Limited By: No Limitations General Appearance: Alert, WD/WN, No Apparent Distress Nose: Normal Inspection Throat/Mouth: Normal Inspection, Normal Lips, Normal Voice, No Airway Compromise , Other (dry lips; cold sore to irina left upper lip, 2mm cut toe hleft upper lip , bleeding upon arrival) Respiratory/Chest: No Respiratory Distress Neurological: Alert Skin Exam: Warm, Dry, Normal Color Course - Vital Signs Last Recorded V/S: Last Vital Signs Temp 96.6 F 01/14/19 20:49 Pulse 68 01/14/19 20:49 Resp 16 01/14/19 20:49 BP 134/68 01/14/19 20:49 Pulse Ox 95 01/14/19 20:49 - Orders/Labs/Meds Labs: Laboratory Tests 01/14/19 Range/Units 21:30 PT 38.5 H (9.7-12.0) SECONDS INR 3.81 - Re-Assessments/Exams Free Text/Narrative Re-Assessment/Exam: 01/14/19 22:01 I was able to cauterize the wound with silver night. He tolerated this extremely well. Cauterized around 21:00/ Checked and the patient. He continues to have no bleeding at this time. Resting comfortably. Awaiting INR. 01/14/19 22:30 Checked on the patient. He is resting comfortably. No rebleeding. INR is slightly suprapubic pubic at 3.81. I recommend they contact his primary care provider's office for further direction with this tomorrow. Discharge instructions as documented. Departure - Departure Time of Disposition: 22:30 Disposition: Home, Self-Care 01 Condition: Good Clinical Impression: Lip laceration, Supratherapeutic INR - Discharge Information *PRESCRIPTION DRUG MONITORING PROGRAM REVIEWED*: No *COPY OF PRESCRIPTION DRUG MONITORING REPORT IN PATIENT BONITA: No Instructions: Mouth Laceration Referrals: Huyen Herring MD [Primary Care Provider] - Forms: ED Department Discharge Additional Instructions: May apply Vaseline or bacitracin to the wound. Monitor for signs of infection such as increased on pus or redness. Present to clinic or the ER should these develop. Sandip's INR was 3.[address] Herring's office tomorrow for further direction. Please return to ER if his symptoms change or worsen.
== END 2019-01-14 22:43 | disposition home or self-care (01) ==
LOC: JD.ED 20:40
DX: S01.511A Laceration without foreign body of lip, initial encounter (principal); R79.1 Abnormal coagulation profile; Q90.9 Down syndrome, unspecified; Z79.01 Long term (current) use of anticoagulants; Z88.1 Allergy status to other antibiotic agents; Z79.82 Long term (current) use of aspirin; Z79.899 Other long term (current) drug therapy; X58.XXXA Exposure to other specified factors, initial encounter
CPT/HCPCS: 36415; 85610; 99283

== ENCOUNTER 2019-08-17 19:21 | Emergency (ER) | payer MEDICAID ==
--- NOTE | 2019-08-17 20:19 | EDM.PDOC ---
ED HPI GENERAL MEDICAL PROBLEM - General Chief Complaint: Chest Pain Stated Complaint: chest pain Time Seen by Provider: 08/17/19 19:42 Source of Information: Reports: Patient, RN Notes Reviewed, Other (caregiver) - History of Present Illness INITIAL COMMENTS - FREE TEXT/NARRATIVE: 29 yr old male with onset of chest pain about 2 hrs ago. 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 Pt is mostly nonverbal but does answer yes and no questions by pointing to care givers fingers. He has not been noticeably ill with cough, fever, chills, abd pain or vomiting. Has not been noticeably short of breath. Chest Pain Score (Numeric/FACES): 10 - Related Data Allergies Allergy/AdvReac Type Severity Reaction Status Date / Time amoxicillin [Amoxicillin] Allergy Rash Verified 01/14/19 20:52 Home Meds: Home Meds Aspirin [Artemio Chewable Aspirin] 81 mg PO DAILY 12/18/13 [History] acetaZOLAMIDE [Acetazolamide] 250 mg PO Q48H 08/30/16 [History] Rosuvastatin [Crestor] 5 mg PO BEDTIME 11/11/17 [History] cephALEXin [Keflex] 500 mg PO ASDIRECTED 11/11/17 [History] Aloe Vera/Sodium Chloride [[place] Saline Nasal Gel] 1 applic JACI DAILY 08/21/18 [ History] Docosanol [Abreva 10%] 1 applic TOP TID PRN 08/21/18 [History] guaiFENesin [Mucus Relief] 800 mg PO BID 08/21/18 [History] Warfarin Sodium [Jantoven] 5 mg PO DAILY 09/03/18 [History] Albuterol [Proventil Neb Soln] 0.63 mg NEB Q4HR 01/14/19 [History] Pantoprazole Sodium [Protonix] 20 mg PO DAILY 08/17/19 [History] Sulfamethoxazole/Trimethoprim [Bactrim Ds Tablet] 1 each PO BID 08/17/19 [ History] Vitamin B Complex [B Complex] 1 each PO DAILY 08/17/19 [History] Past Medical History HEENT History: Reports: Impaired Vision Cardiovascular History: Reports: Afib, Heart Valve Replacement, Pacemaker Respiratory History: Reports: Pneumonia, Recurrent, Sleep Apnea Gastrointestinal History: Reports: GERD Genitourinary History: Reports: None Musculoskeletal History: Reports: None Neurological History: Reports: Speech Problems 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 Psychiatric History: Reports: Other (See Below) Other Psychiatric History: downsyndrome Endocrine/Metabolic History: Reports: Obesity/BMI 30+ Hematologic History: Reports: None Immunologic History: Reports: None Oncologic (Cancer) History: Reports: None Dermatologic History: Reports: None - Infectious Disease History Infectious Disease History: Reports: None - Past Surgical History Respiratory Surgical History: Reports: None GI Surgical History: Reports: None Social & Family History - Family History Family Medical History: Noncontributory - Tobacco Use Smoking Status *Q: Never Smoker Second Hand Smoke Exposure: No - Caffeine Use Caffeine Use: Reports: Soda ED ROS GENERAL - Review of Systems Review Of Systems: See Below Constitutional: Denies: Fever, Chills HEENT: Denies: Rhinitis, Throat Pain Respiratory: Denies: Shortness of Breath, Cough Cardiovascular: Reports: Chest Pain GI/Abdominal: Denies: Abdominal Pain, Nausea, Vomiting Musculoskeletal: Reports: No Symptoms Skin: Reports: No Symptoms Neurological: Reports: No Symptoms ED EXAM, GENERAL - Physical Exam Exam: See Below General Appearance: Alert, No Apparent Distress Throat/Mouth: Normal Inspection Head: Atraumatic Neck: Supple Respiratory/Chest: No Respiratory Distress, Lungs Clear, Normal Breath Sounds. No: Rhonchi, Wheezing Cardiovascular: Regular Rate, Rhythm, Systolic Murmur, Other (metallic sounds of articial valve) GI/Abdominal: Soft, Non-Tender Extremities: Normal Inspection, Normal Range of Motion Neurological: Alert EKG INTERPRETATION EKG Date: 08/17/19 Rhythm: Other (paced rythm, rate 60.) Course - Vital Signs Last Recorded V/S: Last Vital Signs Temp 98.0 F 08/17/19 19:32 Pulse 60 08/17/19 19:32 Resp 16 08/17/19 19:32 BP 149/75 H 08/17/19 19:32 Pulse Ox 100 08/17/19 19:32 - Orders/Labs/Meds Orders: Active Orders 24 hr Category Date Time Status EKG 12 Lead [EKG Documentation Completion] [RC] STAT Care 08/17/19 19:29 Active EKG 12 Lead [EKG Documentation Completion] [RC] STAT Care 08/17/19 19:57 Active Chest 1V Frontal [CR] Stat Exams 08/17/19 19:57 Taken Labs: Laboratory Tests 08/17/19 08/17/19 Range/Units 20:07 20:07 WBC 5.01 (4.23-9.07) K/mm3 RBC 4.77 (4.63-6.08) M/mm3 Hgb 15.6 (13.7-17.5) gm/dl Hct 45.6 (40.1-51.0) % MCV 95.6 H (79.0-92.2) fl MCH 32.7 H (25.7-32.2) pg MCHC 34.2 (32.2-35.5) g/dl RDW Std Deviation 46.5 H (35.1-43.9) fL Plt Count 211 (163-337) K/mm3 MPV 8.9 L (9.4-12.3) fl Neut % (Auto) 55.5 (34.0-67.9) % Lymph % (Auto) 29.9 (21.8-53.1) % Moore % (Auto) 5.8 (5.3-12.2) % Eos % (Auto) 6.6 (0.8-7.0) Baso % (Auto) 2.0 H (0.1-1.2) % Neut # (Auto) 2.78 (1.78-5.38) K/mm3 Lymph # (Auto) 1.50 (1.32-3.57) K/mm3 Moore # (Auto) 0.29 L (0.30-0.82) K/mm3 Eos # (Auto) 0.33 (0.04-0.54) K/mm3 Baso # (Auto) 0.10 H (0.01-0.08) K/mm3 Manual Slide Review Normal smear Sodium 137 (136-145) mEq/L Potassium 3.6 (3.5-5.1) mEq/L Chloride 105 (98-107) mEq/L Carbon Dioxide 22 (21-32) mEq/L Anion Gap 13.6 (5-15) BUN 13 (7-18) mg/dL Creatinine 1.4 H (0.7-1.3) mg/dL Est Cr Clr Drug Dosing 60.67 mL/min Estimated GFR (MDRD) > 60 (>60) mL/min BUN/Creatinine Ratio 9.3 L (14-18) Glucose 104 (74-106) mg/dL Calcium 8.6 (8.5-10.1) mg/dL Total Bilirubin 0.6 (0.2-1.0) mg/dL AST 22 (15-37) U/L ALT 36 (16-63) U/L Alkaline Phosphatase 54 (46-116) U/L Troponin I 0.029 (0.00-0.056) ng/mL Total Protein 6.5 (6.4-8.2) g/dl Albumin 3.4 (3.4-5.0) g/dl Globulin 3.1 gm/dL Albumin/Globulin Ratio 1.1 (1-2) Meds: Medications Discontinued Medications Generic Name Dose Route Start Last Admin Trade Name Nany PRN Reason Stop Dose Admin Acetaminophen 650 mg 08/17/19 21:10 Tylenol PO 08/17/19 21:11 NOW ONE - Re-Assessments/Exams Free Text/Narrative Re-Assessment/Exam: 08/17/19 21:14 CXR does not show any acute changes, similar to prior EKG on record. Labs are OK, trop .029, .022 prior visit so likely has chronic trop leak. He has been breathing, resting comfortably while here in the ED, paced rythm, no ecotpy, sats, vitals good, discharge instr. as documented. Departure - Departure Time of Disposition: 21:11 Disposition: Home, Self-Care 01 Condition: Fair Clinical Impression: Atypical chest pain Instructions: Nonspecific Chest Pain, Adult, [id number] Referrals: Huyen Herring MD [Primary Care Provider] - Forms: ED Department Discharge Additional Instructions: Continue current medications. Tylenol 650 mg has been given while here in the ED at time of discharge. Follow up clinic as needed. Return to ED as needed if symptoms worsening in any way. Sepsis Event Note - Evaluation Sepsis Screening Result: No Definite Risk - Focused Exam Vital Signs: Vital Signs Temp Pulse Resp BP Pulse Ox 08/17/19 19:32 98.0 F 60 16 149/75 H 100 Date Exam was Performed: 08/17/19 Time Exam was Performed: 21:14 - My Orders Last 24 Hours: My Active Orders 08/17/19 19:29 EKG 12 Lead [EKG Documentation Completion] [RC] STAT 08/17/19 19:57 EKG 12 Lead [EKG Documentation Completion] [RC] STAT Chest 1V Frontal [CR] Stat - Assessment/Plan Last 24 Hours: My Active Orders 08/17/19 19:29 EKG 12 Lead [EKG Documentation Completion] [RC] STAT 08/17/19 19:57 EKG 12 Lead [EKG Documentation Completion] [RC] STAT Chest 1V Frontal [CR] Stat
[2019-08-17] MEDS ORDERED: Acetaminophen 325 MG Tab PO ONE (21:10)
[2019-08-17 21:24] VITALS: BP 107/63; PULSE 68
--- NOTE | 2019-08-18 07:50 | CR ---
Chest: Portable view of the chest was obtained. Comparison: Prior chest x-ray of 08/21/18. Heart is enlarged. Prosthetic heart valves are noted. Epicardial wires are seen. Sternotomy wires are noted. Lungs are clear with no acute parenchymal change. No acute bony abnormality is appreciated. Impression: 1. Cardiac findings as noted above which are stable. 2. Nothing acute is appreciated. Diagnostic code #3 Study was dictated in MDT
== END 2019-08-17 21:20 | disposition home or self-care (01) ==
LOC: JD.ED 19:21
DX: R07.89 Other chest pain (principal); I48.91 Unspecified atrial fibrillation; Q90.9 Down syndrome, unspecified; K21.9 Gastro-esophageal reflux disease without esophagitis; E66.9 Obesity, unspecified; Z68.35 Body mass index [BMI] 35.0-35.9, adult; Z79.01 Long term (current) use of anticoagulants; Z88.1 Allergy status to other antibiotic agents
CPT/HCPCS: 36415; 71045; 80053; 84484; 85025; 93005; 99285; A9270; 93010; 99282

== ENCOUNTER 2024-02-28 15:52 | Emergency (ER) | payer MEDICAID ==
[2024-02-28 16:13] LABS: BASOPHILS ABSOLUTE AUTO 0.1 K/mm3 (0.0-0.2); EOSINOPHILS ABSOLUTE AUTO 0.1 K/mm3 (0.0-0.4); EOSINOPHILS PERCENT AUTO 1.6 % (0.0-6.0); HEMATOCRIT 46.8 % (42.0-52.0); HEMOGLOBIN 15.9 gm/dl (14.0-18.0); IMMATURE GRAN ABSOLUTE AUTO 0.04 K/mm3 (0.00-0.05); IMMATURE GRAN PERCENT AUTO 0.8 % (0.0-0.4); LYMPHOCYTES ABSOLUTE AUTO 1.2 K/mm3 (1.0-4.8); LYMPHOCYTES PERCENT AUTO 23.2 % (24.0-44.0); MEAN PLATELET VOLUME 8.9 fl (9.4-12.4); MONOCYTES ABSOLUTE AUTO 0.4 K/mm3 (0.0-0.8); MONOCYTES PERCENT AUTO 6.9 % (0.0-8.0); NEUTROPHILS ABSOLUTE AUTO 3.4 K/mm3 (1.8-7.7); NEUTROPHILS PERCENT AUTO 66.5 % (41.0-71.0); PLATELET COUNT,PLT 200 K/mm3 (150-400); RED BLOOD CELL COUNT 4.68 M/mm3 (4.52-5.90); WHITE BLOOD CELL COUNT,WBC 5.04 K/mm3 (3.9-11.3)
[2024-02-28 16:34] LABS: A/G RATIO 1.1 (1-2); ALBUMIN 3.6 g/dl (3.4-5.0); ANION GAP 11.6 (5-15); BILIRUBIN TOTAL 0.5 mg/dL (0.2-1.0); BUN/CREATININE RATIO 10.8 (14-18); CALCIUM 8.6 mg/dL (8.5-10.1); CREATININE 1.3 mg/dL (0.7-1.3); POTASSIUM,K 3.6 mEq/L (3.5-5.1)
[2024-02-28 16:47] VITALS: BP 106/58; PULSE 63
[2024-02-28 16:51] LABS: INR 7.12; PROTHROMBIN TIME 66.4 SECONDS (9.7-12.0)
== END 2024-02-28 17:28 | disposition home or self-care (01) ==
LOC: JD.ED 15:52
DX: S00.83XA Contusion of other part of head, initial encounter (principal); R79.1 Abnormal coagulation profile; K21.9 Gastro-esophageal reflux disease without esophagitis; E66.9 Obesity, unspecified; Z68.29 Body mass index [BMI] 29.0-29.9, adult; Z88.0 Allergy status to penicillin; Z79.82 Long term (current) use of aspirin; Z79.899 Other long term (current) drug therapy; W50.0XXA Accidental hit or strike by another person, initial encounter
CPT/HCPCS: 36415; 70450; 70450-26; 72125; 72125-26; 80053; 85025; 85610; 99283; 99284